=== PATIENT | female | born 1940 | race Caucasian/White ===

== ENCOUNTER → 2017-12-09 | Outpatient (CLI) | payer OTHER, SELFPAY ==
[~2017-12-09] MED LIST: ALBU2.5V5 INH; AMIT75 PO; AMOX250 PO; ASPI81CH PO; ASPI81EC; Amoxicillin500 MG PO; CLON.5 PO; DIPATR PO; ENOX40I SC; ESCI20 PO; FURO20 PO; HYDACE5; HYDACE5 PO; HYDR1TAB94 PO; Hydrocodone-Ap1 EA23 PO; Lotrel 10-20 M1 EACH PO; METF500 PO; METO25 PO; Micro-K10 MEQ PO; OXYACE5T PO; POTCHL10ER PO; PRED20 PO; PROM25 PO; TRAZ50 PO; XARELTO20 MG PO; [UNRECOGNIZED DRUG - REMARK]; [UNRECOGNIZED DRUG - REMARK]; [UNRECOGNIZED DRUG - REMARK]
== END | disposition home or self-care (01) ==
LOC: LAB SHORT 17:29 → LAB EV 17:29
DX: R39.15 Urgency of urination (principal)
CPT/HCPCS: 87086

== ENCOUNTER 2017-12-21 18:39 | Inpatient (IN) | payer OTHER, SELFPAY ==
[~2017-12-21] VITALS: Ht 162.6 cm; Wt 100.5 kg
[~2017-12-21 18:39] MED LIST changes: -ALBU2.5V5 INH; -AMOX250 PO; -ESCI20 PO; -FURO20 PO; -METO25 PO; -Micro-K10 MEQ PO; -POTCHL10ER PO; -PRED20 PO; -TRAZ50 PO; -XARELTO20 MG PO
[2017-12-21] MEDS ORDERED: ESCI20 PO (19:10)
[2017-12-21] MEDS ORDERED: HYDR1TAB94 PO (19:11)
[2017-12-21 19:19] LABS: BASOPHILS ABSOLUTE AUTO 0.02 K/mm3 (0.00-0.23); BASOPHILS PERCENT AUTO 0 % (0-2); EOSINOPHILS PERCENT AUTO 2 % (0-6); Hematocrit 40.3 % (33.0-51.0); Hemoglobin 13.3 g/dL (11.5-16.0); IMMATURE GRAN ABSOLUTE AUTO 0.01 K/mm3 (0.00-0.10); IMMATURE GRAN PERCENT AUTO 0 % (0-1); LYMPHOCYTES ABSOLUTE AUTO 1.17 K/mm3 (0.84-5.20); LYMPHOCYTES PERCENT AUTO 25 % (21-46); MONOCYTES ABSOLUTE AUTO 0.36 K/mm3 (0.16-1.47); MONOCYTES PERCENT AUTO 8 % (4-13); Mean Corpuscular HGB 32.5 pg (26.0-34.0); Mean Corpuscular Volume 99 fL (80-100); Mean Platelet Volume 9.7 fL (9.1-12.4); NEUTROPHILS ABSOLUTE AUTO 2.97 K/mm3 (1.96-9.15); NEUTROPHILS PERCENT AUTO 64 % (41-73); Platelet Count 252 K/mm3 (150-400); RDW Coefficient Variation 13.6 % (11.7-14.2); RDW Standard Deviation 49.5 fL (35.1-46.3); Red Blood Cell Count 4.09 M/mm3 (3.80-5.20); White Blood Cell Count 4.63 K/mm3 (4.00-11.30)
[2017-12-21 19:32] LABS: International Normalized Ratio 0.96
[2017-12-21 19:33] LABS: Alanine Aminotransfer (ALT/SGP 29 U/L (12-78); Albumin, Blood 3.3 g/dL (3.4-5.0); Albumin/Globulin Ratio 0.8 (0.8-1.8); Alk Phos 43 U/L (50-136); Anion Gap 9 mmol/L (6-16); Aspartate Aminotrans (AST/SGOT 31 U/L (12-37); Bilirubin, Total 0.4 mg/dL (0.1-1.0); Blood Urea Nitrogen 24 mg/dL (8-24); CO2, Blood 24 mmol/L (21-32); Calcium, Blood 8.5 mg/dL (8.5-10.1); Chloride, Blood 106 mmol/L (98-108); Globulin, Blood 4.1 g/dL (2.2-4.0); Glomerular Filtration Rate 57 (60-); Glucose, Blood 139 mg/dL (70-99); Magnesium, Blood 2.3 mg/dL (1.6-2.4); Potassium, Blood 3.8 mmol/L (3.5-5.5); Sodium, Blood 139 mmol/L (136-145); Total Protein, Blood 7.4 g/dL (6.4-8.2); Troponin I <0.015 ng/mL (0.000-0.040)
[2017-12-22 00:51] LABS: Source, Urine Clean Catch
[2017-12-22 00:52] LABS: Bilirubin, Urine Neg (Neg); Blood, Urine 3+ (Neg); Glucose Qualitative, Urine Neg (Neg); Ketones, Urine Neg (Neg); Leukocyte Esterase, Urine 1+ (Neg); Nitrite, Urine Neg (Neg); Protein, Urine Neg (Neg); Urobilinogen, Urine NORM (Normal)
[2017-12-22 01:01] LABS: Appearance, Urine Clear (Clear); Color, Urine Yellow (P-Yellow)
[2017-12-22 01:02] LABS: Bacteria Rare /hpf; Squamous Epithelial Cells Few /hpf (Few); White Blood Cells, Urine Rare /hpf (0-5)
[2017-12-22 01:21] LABS: Influenza A Negative (NEGATIVE); Influenza B Negative (NEGATIVE)
[2017-12-22 10:17] LABS: BASOPHILS ABSOLUTE AUTO 0.01 K/mm3 (0.00-0.23); BASOPHILS PERCENT AUTO 0 % (0-2); EOSINOPHILS PERCENT AUTO 0 % (0-6); Hematocrit 40.7 % (33.0-51.0); Hemoglobin 13.3 g/dL (11.5-16.0); Mean Corpuscular HGB 32.2 pg (26.0-34.0); Mean Corpuscular HGB Conc 32.7 g/dL (31.5-36.5); Mean Corpuscular Volume 99 fL (80-100); Mean Platelet Volume 9.6 fL (9.1-12.4); Platelet Count 248 K/mm3 (150-400); RDW Coefficient Variation 13.4 % (11.7-14.2); RDW Standard Deviation 49.2 fL (35.1-46.3); Red Blood Cell Count 4.13 M/mm3 (3.80-5.20); White Blood Cell Count 3.05 K/mm3 (4.00-11.30)
[2017-12-22 10:23] LABS: IMMATURE GRAN ABSOLUTE AUTO 0.01 K/mm3 (0.00-0.10); IMMATURE GRAN PERCENT AUTO 0 % (0-1); LYMPHOCYTES ABSOLUTE AUTO 0.59 K/mm3 (0.84-5.20); LYMPHOCYTES PERCENT AUTO 19 % (21-46); MONOCYTES ABSOLUTE AUTO 0.04 K/mm3 (0.16-1.47); MONOCYTES PERCENT AUTO 1 % (4-13); NEUTROPHILS PERCENT AUTO 79 % (41-73)
[2017-12-22 10:42] LABS: Alanine Aminotransfer (ALT/SGP 41 U/L (12-78); Albumin, Blood 3.1 g/dL (3.4-5.0); Albumin/Globulin Ratio 0.7 (0.8-1.8); Alk Phos 43 U/L (50-136); Anion Gap 7 mmol/L (6-16); Aspartate Aminotrans (AST/SGOT 48 U/L (12-37); Bilirubin, Total 0.5 mg/dL (0.1-1.0); Blood Urea Nitrogen 17 mg/dL (8-24); Bun/Creatinine Ratio 25.1 (12.0-20.0); CO2, Blood 24 mmol/L (21-32); Calcium, Blood 7.9 mg/dL (8.5-10.1); Chloride, Blood 108 mmol/L (98-108); Creatinine, Blood 0.68 mg/dL (0.40-1.00); Globulin, Blood 4.3 g/dL (2.2-4.0); Glomerular Filtration Rate >60 (60-); Glucose, Blood 220 mg/dL (70-99); Potassium, Blood 4.3 mmol/L (3.5-5.5); Sodium, Blood 139 mmol/L (136-145); Total Protein, Blood 7.4 g/dL (6.4-8.2)
[2017-12-23 05:21] LABS: BASOPHILS ABSOLUTE AUTO 0.01 K/mm3 (0.00-0.23); BASOPHILS PERCENT AUTO 0 % (0-2); EOSINOPHILS PERCENT AUTO 0 % (0-6); Hematocrit 38.6 % (33.0-51.0); Hemoglobin 12.4 g/dL (11.5-16.0); IMMATURE GRAN ABSOLUTE AUTO 0.03 K/mm3 (0.00-0.10); IMMATURE GRAN PERCENT AUTO 0 % (0-1); LYMPHOCYTES ABSOLUTE AUTO 0.88 K/mm3 (0.84-5.20); LYMPHOCYTES PERCENT AUTO 11 % (21-46); MONOCYTES PERCENT AUTO 4 % (4-13); Mean Corpuscular HGB 32.2 pg (26.0-34.0); Mean Corpuscular HGB Conc 32.1 g/dL (31.5-36.5); Mean Corpuscular Volume 100 fL (80-100); Mean Platelet Volume 9.9 fL (9.1-12.4); NEUTROPHILS PERCENT AUTO 84 % (41-73); Platelet Count 242 K/mm3 (150-400); RDW Coefficient Variation 13.4 % (11.7-14.2); Red Blood Cell Count 3.85 M/mm3 (3.80-5.20); White Blood Cell Count 7.72 K/mm3 (4.00-11.30)
[2017-12-23 06:09] LABS: Alanine Aminotransfer (ALT/SGP 54 U/L (12-78); Albumin/Globulin Ratio 0.7 (0.8-1.8); Alk Phos 37 U/L (50-136); Anion Gap 9 mmol/L (6-16); Aspartate Aminotrans (AST/SGOT 49 U/L (12-37); Bilirubin, Total 0.3 mg/dL (0.1-1.0); Blood Urea Nitrogen 21 mg/dL (8-24); Bun/Creatinine Ratio 31.2 (12.0-20.0); CO2, Blood 22 mmol/L (21-32); Calcium, Blood 8.2 mg/dL (8.5-10.1); Chloride, Blood 108 mmol/L (98-108); Creatinine, Blood 0.67 mg/dL (0.40-1.00); Globulin, Blood 4.4 g/dL (2.2-4.0); Glomerular Filtration Rate >60 (60-); Glucose, Blood 159 mg/dL (70-99); Potassium, Blood 4.3 mmol/L (3.5-5.5); Sodium, Blood 139 mmol/L (136-145); Total Protein, Blood 7.4 g/dL (6.4-8.2)
[2017-12-26 05:00] LABS: Anion Gap 7 mmol/L (6-16); Blood Urea Nitrogen 21 mg/dL (8-24); Bun/Creatinine Ratio 33.8 (12.0-20.0); CO2, Blood 29 mmol/L (21-32); Chloride, Blood 103 mmol/L (98-108); Creatinine, Blood 0.62 mg/dL (0.40-1.00); Glomerular Filtration Rate >60 (60-); Glucose, Blood 152 mg/dL (70-99); Potassium, Blood 3.8 mmol/L (3.5-5.5); Sodium, Blood 139 mmol/L (136-145)
[2017-12-27] MEDS ORDERED: ALBU2.5V5 INH (15:18)
[2017-12-27] MEDS ORDERED: METO25 PO (15:20)
[2017-12-27] MEDS ORDERED: XARELTO20 MG PO (15:22)
[2017-12-27] MEDS ORDERED: PRED20 PO (15:22)
[2018-02-12] MEDS ORDERED: HYDR1TAB94 PO (14:47)
== END 2017-12-27 17:56 | disposition home or self-care (01) | DRG 193 ==
LOC: ER 18:39 → PCU 20:34 → MEDS 12-23 16:59 → ENPENDDIS 12-27 14:30 → MEDS 12-27 17:56
PROVIDERS: Emergency Medicine; Internal Medicine; Internal Medicine Endocrinology, Diabetes & Metabolism
PROC: 5A09357 Assistance with Respiratory Ventilation, Less than 24 Consecutive Hours, Continuous Positive Airway Pressure (ICD-10-PCS; principal; 2017-12-22)
PROC: 3E0234Z Introduction of Serum, Toxoid and Vaccine into Muscle, Percutaneous Approach (ICD-10-PCS; 2017-12-22)
DX: J18.9 Pneumonia, unspecified organism (principal); J96.01 Acute respiratory failure with hypoxia; Z23 Encounter for immunization; I48.91 Unspecified atrial fibrillation; E66.9 Obesity, unspecified; Z68.35 Body mass index [BMI] 35.0-35.9, adult; E11.9 Type 2 diabetes mellitus without complications; I10 Essential (primary) hypertension
CPT/HCPCS: 36415; 71046; 71260; 80048; 80053; 81001; 82947; 83605; 83735; 83880; 84145; 84443; 84484; 85025; 85379; 85610; 85730; 87040; 87804; 93005; 93010; 93306; 94640; 94660; 94762; 96365; 96368; 96375; 97116; 97162; 97165; 97530; 97535; 99285; G8978; G8979; G8987; G8988; J0456; J0696; J1650; J1956; J2405; J2930; J3480; J7030; J7050; Q9967

== ENCOUNTER → 2017-12-21 | Outpatient (CLI) | payer OTHER, SELFPAY ==
[2017-12-21 18:07] LABS: BASOPHILS ABSOLUTE AUTO 0.03 K/mm3 (0.00-0.23); BASOPHILS PERCENT AUTO 1 % (0-2); EOSINOPHILS PERCENT AUTO 2 % (0-6); Hematocrit 41.4 % (33.0-51.0); Hemoglobin 13.9 g/dL (11.5-16.0); IMMATURE GRAN ABSOLUTE AUTO 0.02 K/mm3 (0.00-0.10); IMMATURE GRAN PERCENT AUTO 0 % (0-1); LYMPHOCYTES ABSOLUTE AUTO 1.28 K/mm3 (0.84-5.20); LYMPHOCYTES PERCENT AUTO 25 % (21-46); MONOCYTES ABSOLUTE AUTO 0.38 K/mm3 (0.16-1.47); MONOCYTES PERCENT AUTO 8 % (4-13); Mean Corpuscular HGB 32.7 pg (26.0-34.0); Mean Corpuscular HGB Conc 33.6 g/dL (31.5-36.5); Mean Corpuscular Volume 97 fL (80-100); Mean Platelet Volume 9.5 fL (9.1-12.4); NEUTROPHILS ABSOLUTE AUTO 3.24 K/mm3 (1.96-9.15); NEUTROPHILS PERCENT AUTO 64 % (41-73); Platelet Count 273 K/mm3 (150-400); RDW Coefficient Variation 13.8 % (11.7-14.2); RDW Standard Deviation 49.8 fL (35.1-46.3); Red Blood Cell Count 4.25 M/mm3 (3.80-5.20); White Blood Cell Count 5.05 K/mm3 (4.00-11.30)
[2017-12-21 18:22] LABS: Anion Gap 8 mmol/L (6-16); Blood Urea Nitrogen 23 mg/dL (8-24); Bun/Creatinine Ratio 19.7 (12.0-20.0); CO2, Blood 26 mmol/L (21-32); Calcium, Blood 8.7 mg/dL (8.5-10.1); Chloride, Blood 104 mmol/L (98-108); Creatinine, Blood 1.17 mg/dL (0.40-1.00); Glomerular Filtration Rate 45 (60-); Glucose, Blood 149 mg/dL (70-99); Potassium, Blood 3.9 mmol/L (3.5-5.5); Sodium, Blood 138 mmol/L (136-145)
[2017-12-21 18:23] LABS: Troponin I <0.017 ng/mL (0.000-0.040)
== END | disposition home or self-care (01) ==
LOC: LAB EV 18:04 → LAB SHORT 18:04
PROVIDERS: Family Medicine
DX: I48.91 Unspecified atrial fibrillation (principal); E11.9 Type 2 diabetes mellitus without complications
CPT/HCPCS: 80048; 83036; 84484; 85025

== ENCOUNTER 2018-01-19 01:24 | Inpatient (IN) | payer OTHER ==
[~2018-01-19] VITALS: Ht 165.1 cm; Wt 94.6 kg
[~2018-01-19 01:24] MED LIST changes: +ALBU2.5V5 INH; +ESCI20 PO; +METO25 PO; +PRED20 PO; +XARELTO20 MG PO
[2018-01-19 02:18] LABS: BASOPHILS ABSOLUTE AUTO 0.02 K/mm3 (0.00-0.23); BASOPHILS PERCENT AUTO 0 % (0-2); EOSINOPHILS PERCENT AUTO 5 % (0-6); Hematocrit 35.4 % (33.0-51.0); Hemoglobin 11.5 g/dL (11.5-16.0); IMMATURE GRAN ABSOLUTE AUTO 0.03 K/mm3 (0.00-0.10); IMMATURE GRAN PERCENT AUTO 1 % (0-1); LYMPHOCYTES ABSOLUTE AUTO 2.19 K/mm3 (0.84-5.20); LYMPHOCYTES PERCENT AUTO 36 % (21-46); MONOCYTES ABSOLUTE AUTO 0.39 K/mm3 (0.16-1.47); MONOCYTES PERCENT AUTO 7 % (4-13); Mean Corpuscular HGB Conc 32.5 g/dL (31.5-36.5); Mean Corpuscular Volume 101 fL (80-100); NEUTROPHILS ABSOLUTE AUTO 3.09 K/mm3 (1.96-9.15); NEUTROPHILS PERCENT AUTO 51 % (41-73); Platelet Count 216 K/mm3 (150-400); RDW Coefficient Variation 14.3 % (11.7-14.2); RDW Standard Deviation 53.2 fL (35.1-46.3); Red Blood Cell Count 3.49 M/mm3 (3.80-5.20); White Blood Cell Count 6.02 K/mm3 (4.00-11.30)
[2018-01-19 02:25] LABS: Alanine Aminotransfer (ALT/SGP 77 U/L (12-78); Albumin/Globulin Ratio 0.8 (0.8-1.8); Alk Phos 46 U/L (50-136); Anion Gap 6 mmol/L (6-16); Aspartate Aminotrans (AST/SGOT 47 U/L (12-37); Bilirubin, Total 0.3 mg/dL (0.1-1.0); Blood Urea Nitrogen 19 mg/dL (8-24); Bun/Creatinine Ratio 23.1 (12.0-20.0); CO2, Blood 26 mmol/L (21-32); Calcium, Blood 7.9 mg/dL (8.5-10.1); Chloride, Blood 112 mmol/L (98-108); Creatinine, Blood 0.82 mg/dL (0.40-1.00); Globulin, Blood 3.8 g/dL (2.2-4.0); Glomerular Filtration Rate >60 (60-); Glucose, Blood 110 mg/dL (70-99); Potassium, Blood 4.3 mmol/L (3.5-5.5); Sodium, Blood 144 mmol/L (136-145); Total Protein, Blood 6.8 g/dL (6.4-8.2); Troponin I <0.015 ng/mL (0.000-0.040)
[2018-01-19 02:36] LABS: PCO2 Arterial 32.8 mmHg (35-45); PO2 Arterial 60.9 mmHg (80-100); pH Blood Arterial 7.46 (7.35-7.45)
[2018-01-19 14:03] LABS: BASOPHILS ABSOLUTE AUTO 0.02 K/mm3 (0.00-0.23); BASOPHILS PERCENT AUTO 0 % (0-2); EOSINOPHILS ABSOLUTE AUTO 0.21 K/mm3 (0.00-0.68); EOSINOPHILS PERCENT AUTO 4 % (0-6); Hemoglobin 11.7 g/dL (11.5-16.0); IMMATURE GRAN ABSOLUTE AUTO 0.02 K/mm3 (0.00-0.10); IMMATURE GRAN PERCENT AUTO 0 % (0-1); LYMPHOCYTES ABSOLUTE AUTO 1.54 K/mm3 (0.84-5.20); LYMPHOCYTES PERCENT AUTO 30 % (21-46); MONOCYTES PERCENT AUTO 8 % (4-13); Mean Corpuscular HGB 33.4 pg (26.0-34.0); Mean Corpuscular HGB Conc 33.4 g/dL (31.5-36.5); Mean Corpuscular Volume 100 fL (80-100); Mean Platelet Volume 9.7 fL (9.1-12.4); NEUTROPHILS PERCENT AUTO 58 % (41-73); Platelet Count 233 K/mm3 (150-400); RDW Coefficient Variation 14.2 % (11.7-14.2); RDW Standard Deviation 51.9 fL (35.1-46.3); White Blood Cell Count 5.19 K/mm3 (4.00-11.30)
[2018-01-19 14:55] LABS: Alanine Aminotransfer (ALT/SGP 68 U/L (12-78); Albumin, Blood 3.1 g/dL (3.4-5.0); Albumin/Globulin Ratio 0.8 (0.8-1.8); Alk Phos 48 U/L (50-136); Anion Gap 6 mmol/L (6-16); Aspartate Aminotrans (AST/SGOT 39 U/L (12-37); Bilirubin, Total 0.7 mg/dL (0.1-1.0); Blood Urea Nitrogen 14 mg/dL (8-24); Bun/Creatinine Ratio 14.8 (12.0-20.0); CO2, Blood 27 mmol/L (21-32); Calcium, Blood 8.2 mg/dL (8.5-10.1); Chloride, Blood 108 mmol/L (98-108); Creatinine, Blood 0.95 mg/dL (0.40-1.00); Globulin, Blood 3.9 g/dL (2.2-4.0); Glomerular Filtration Rate >60 (60-); Glucose, Blood 124 mg/dL (70-99); Potassium, Blood 3.6 mmol/L (3.5-5.5); Sodium, Blood 141 mmol/L (136-145)
[2018-01-20] MEDS ORDERED: FURO20 PO (15:26)
[2018-01-20] MEDS ORDERED: Micro-K10 MEQ PO (15:27)
== END 2018-01-20 16:10 | disposition home or self-care (01) | DRG 291 ==
LOC: ER 01:24 → MEDS 01:25 → SURS 03:25
PROVIDERS: Emergency Medicine; Internal Medicine
DX: I11.0 Hypertensive heart disease with heart failure (principal); J96.01 Acute respiratory failure with hypoxia; I50.31 Acute diastolic (congestive) heart failure; E11.9 Type 2 diabetes mellitus without complications; G47.33 Obstructive sleep apnea (adult) (pediatric); E66.9 Obesity, unspecified; I48.2 Chronic atrial fibrillation; Z68.36 Body mass index [BMI] 36.0-36.9, adult
CPT/HCPCS: 36415; 36600; 71046; 71260; 80053; 82803; 83880; 84484; 85025; 93005; 93010; 94640; 94660; 94762; 99285; J1940; Q9967

== ENCOUNTER → 2018-02-03 | Outpatient (CLI) | payer OTHER ==
[~2018-02-03] MED LIST changes: +FURO20 PO; +Micro-K10 MEQ PO
[2018-02-03 15:23] LABS: BASOPHILS ABSOLUTE AUTO 0.05 K/mm3 (0.00-0.23); BASOPHILS PERCENT AUTO 1 % (0-2); EOSINOPHILS ABSOLUTE AUTO 0.13 K/mm3 (0.00-0.68); EOSINOPHILS PERCENT AUTO 2 % (0-6); Hematocrit 33.4 % (33.0-51.0); Hemoglobin 10.8 g/dL (11.5-16.0); IMMATURE GRAN ABSOLUTE AUTO 0.04 K/mm3 (0.00-0.10); IMMATURE GRAN PERCENT AUTO 1 % (0-1); LYMPHOCYTES ABSOLUTE AUTO 1.82 K/mm3 (0.84-5.20); LYMPHOCYTES PERCENT AUTO 29 % (21-46); MONOCYTES ABSOLUTE AUTO 0.55 K/mm3 (0.16-1.47); MONOCYTES PERCENT AUTO 9 % (4-13); Mean Corpuscular HGB 32.9 pg (26.0-34.0); Mean Corpuscular HGB Conc 32.3 g/dL (31.5-36.5); Mean Corpuscular Volume 102 fL (80-100); Mean Platelet Volume 9.5 fL (9.1-12.4); NEUTROPHILS ABSOLUTE AUTO 3.75 K/mm3 (1.96-9.15); NEUTROPHILS PERCENT AUTO 59 % (41-73); Platelet Count 357 K/mm3 (150-400); RDW Coefficient Variation 14.5 % (11.7-14.2); Red Blood Cell Count 3.28 M/mm3 (3.80-5.20); White Blood Cell Count 6.34 K/mm3 (4.00-11.30)
[2018-02-03 15:34] LABS: Alanine Aminotransfer (ALT/SGP 36 U/L (12-78); Albumin, Blood 3.1 g/dL (3.4-5.0); Albumin/Globulin Ratio 0.8 (0.8-1.8); Alk Phos 46 U/L (40-126); Anion Gap 7 mmol/L (6-16); Aspartate Aminotrans (AST/SGOT 25 U/L (12-37); Bilirubin, Total 0.3 mg/dL (0.1-1.0); Blood Urea Nitrogen 17 mg/dL (8-24); Bun/Creatinine Ratio 19.3 (12.0-20.0); CO2, Blood 27 mmol/L (21-32); Calcium, Blood 8.5 mg/dL (8.5-10.1); Chloride, Blood 108 mmol/L (98-108); Creatinine, Blood 0.88 mg/dL (0.40-1.00); Globulin, Blood 3.9 g/dL (2.2-4.0); Glomerular Filtration Rate >60 (60-); Glucose, Blood 93 mg/dL (70-99); Potassium, Blood 4.3 mmol/L (3.5-5.5); Sodium, Blood 142 mmol/L (136-145)
== END ==
LOC: LAB SHORT 15:20 → LAB EV 15:20
PROVIDERS: Physician Assistant
DX: R05 Cough (principal)
CPT/HCPCS: 80053; 83880; 85025

== ENCOUNTER 2018-02-15 08:02 | Day surgery (SDC) | payer OTHER ==
[~2018-02-15] VITALS: Ht 165.1 cm; Wt 95.5 kg
== END 2018-02-15 09:00 | disposition home or self-care (01) ==
LOC: MHTC 08:02
DX: I48.91 Unspecified atrial fibrillation (principal); I11.0 Hypertensive heart disease with heart failure; I50.33 Acute on chronic diastolic (congestive) heart failure
CPT/HCPCS: 82947; J2060; J2270; J7030

== ENCOUNTER 2018-04-12 06:58 | Day surgery (SDC) | payer OTHER ==
[~2018-04-12] VITALS: Ht 162.6 cm; Wt 97.3 kg
[2018-04-12] MEDS ORDERED: AMOX250 PO (08:01)
[2018-04-12] MEDS ORDERED: POTCHL10ER PO (09:09)
[2018-04-12] MEDS ORDERED: FURO20 PO (09:09)
== END 2018-04-12 23:32 | disposition home or self-care (01) ==
LOC: MHTC 06:58
DX: I48.1 Persistent atrial fibrillation (principal); Z79.01 Long term (current) use of anticoagulants; I11.0 Hypertensive heart disease with heart failure; I50.33 Acute on chronic diastolic (congestive) heart failure; Z91.14 Patient's other noncompliance with medication regimen; E11.9 Type 2 diabetes mellitus without complications; Z79.84 Long term (current) use of oral hypoglycemic drugs; D64.9 Anemia, unspecified; G47.33 Obstructive sleep apnea (adult) (pediatric); F41.8 Other specified anxiety disorders; E66.9 Obesity, unspecified; Z68.36 Body mass index [BMI] 36.0-36.9, adult
CPT/HCPCS: 92960; 93005; 93010; J0282; J7120

== ENCOUNTER → 2018-04-23 | Outpatient (CLI) | payer OTHER ==
[~2018-04-23] MED LIST changes: +AMOX250 PO; +POTCHL10ER PO
== END | disposition home or self-care (01) ==
LOC: LAB EV 18:54 → LAB SHORT 18:54
DX: R30.0 Dysuria (principal)
CPT/HCPCS: 87086

== ENCOUNTER 2018-05-13 20:11 | Emergency (ER) | payer OTHER, SELFPAY ==
[~2018-05-13] VITALS: Ht 154.9 cm; Wt 98.0 kg
[2018-05-13] MEDS ORDERED: TRAZ50 PO (21:48)
== END 2018-05-13 22:57 | disposition home or self-care (01) ==
LOC: ER 20:11
DX: F32.9 Major depressive disorder, single episode, unspecified (principal); F41.1 Generalized anxiety disorder; Z88.1 Allergy status to other antibiotic agents; Z79.899 Other long term (current) drug therapy; E11.9 Type 2 diabetes mellitus without complications; Z79.84 Long term (current) use of oral hypoglycemic drugs; I48.91 Unspecified atrial fibrillation; I10 Essential (primary) hypertension; Z87.01 Personal history of pneumonia (recurrent)
CPT/HCPCS: 99283

== ENCOUNTER → 2018-11-03 | Outpatient (CLI) | payer MEDICARE, OTHER ==
[~2018-11-03] MED LIST changes: +TRAZ50 PO
[2018-11-03 10:57] LABS: BASOPHILS ABSOLUTE AUTO 0.04 K/mm3 (0.00-0.23); BASOPHILS PERCENT AUTO 1 % (0-2); EOSINOPHILS ABSOLUTE AUTO 0.22 K/mm3 (0.00-0.68); EOSINOPHILS PERCENT AUTO 4 % (0-6); Hematocrit 37.5 % (33.0-51.0); Hemoglobin 12.5 g/dL (11.5-16.0); IMMATURE GRAN ABSOLUTE AUTO 0.01 K/mm3 (0.00-0.10); IMMATURE GRAN PERCENT AUTO 0 % (0-1); LYMPHOCYTES ABSOLUTE AUTO 1.81 K/mm3 (0.84-5.20); LYMPHOCYTES PERCENT AUTO 31 % (21-46); MONOCYTES ABSOLUTE AUTO 0.55 K/mm3 (0.16-1.47); MONOCYTES PERCENT AUTO 9 % (4-13); Mean Corpuscular HGB 32.4 pg (26.0-34.0); Mean Corpuscular HGB Conc 33.3 g/dL (31.5-36.5); Mean Corpuscular Volume 97 fL (80-100); Mean Platelet Volume 9.6 fL (9.1-12.4); NEUTROPHILS ABSOLUTE AUTO 3.21 K/mm3 (1.96-9.15); NEUTROPHILS PERCENT AUTO 55 % (41-73); Platelet Count 322 K/mm3 (150-400); RDW Coefficient Variation 13.1 % (11.7-14.2); RDW Standard Deviation 46.5 fL (35.1-46.3); Red Blood Cell Count 3.86 M/mm3 (3.80-5.20); White Blood Cell Count 5.84 K/mm3 (4.00-11.30)
[2018-11-03 11:20] LABS: Alanine Aminotransfer (ALT/SGP 19 U/L (12-78); Albumin, Blood 3.1 g/dL (3.4-5.0); Albumin/Globulin Ratio 0.7 (0.8-1.8); Alk Phos 42 U/L (40-126); Anion Gap 11 mmol/L (6-16); Aspartate Aminotrans (AST/SGOT 21 U/L (12-37); Bilirubin, Total 0.4 mg/dL (0.1-1.0); Blood Urea Nitrogen 10 mg/dL (8-24); Bun/Creatinine Ratio 11.2 (12.0-20.0); CO2, Blood 27 mmol/L (21-32); CPK Creatine Kinase 115 U/L (26-192); Calcium, Blood 8.7 mg/dL (8.5-10.1); Chloride, Blood 106 mmol/L (98-108); Creatinine, Blood 0.89 mg/dL (0.40-1.00); Globulin, Blood 4.3 g/dL (2.2-4.0); Glomerular Filtration Rate >60 (60-); Glucose, Blood 94 mg/dL (70-99); Potassium, Blood 3.2 mmol/L (3.5-5.5); Sodium, Blood 144 mmol/L (136-145); Total Protein, Blood 7.4 g/dL (6.4-8.2)
[2018-11-03 11:21] LABS: Troponin I <0.015 ng/mL (0.000-0.040)
== END | disposition home or self-care (01) ==
LOC: LAB SHORT 10:51 → LAB EV 10:51
PROVIDERS: Physician Assistant
DX: R07.81 Pleurodynia (principal)
CPT/HCPCS: 80053; 82550; 83880; 84484; 85025; 85379

== ENCOUNTER → 2019-02-02 | Outpatient (CLI) | payer MEDICARE, OTHER ==
[~2019-02-02] MED LIST changes: +DULO60 PO; +Lopressor 25 mg25 MG PO; +METF500C PO; +Zanaflex2 M1 PO
[2019-02-02 11:33] LABS: BASOPHILS ABSOLUTE AUTO 0.04 K/mm3 (0.00-0.23); BASOPHILS PERCENT AUTO 1 % (0-2); EOSINOPHILS ABSOLUTE AUTO 0.19 K/mm3 (0.00-0.68); EOSINOPHILS PERCENT AUTO 3 % (0-6); Hematocrit 39.7 % (33.0-51.0); Hemoglobin 13.1 g/dL (11.5-16.0); IMMATURE GRAN ABSOLUTE AUTO 0.02 K/mm3 (0.00-0.10); IMMATURE GRAN PERCENT AUTO 0 % (0-1); LYMPHOCYTES ABSOLUTE AUTO 1.42 K/mm3 (0.84-5.20); LYMPHOCYTES PERCENT AUTO 22 % (21-46); MONOCYTES ABSOLUTE AUTO 0.45 K/mm3 (0.16-1.47); MONOCYTES PERCENT AUTO 7 % (4-13); Mean Corpuscular HGB 32.1 pg (26.0-34.0); Mean Corpuscular Volume 97 fL (80-100); Mean Platelet Volume 9.5 fL (9.1-12.4); NEUTROPHILS ABSOLUTE AUTO 4.33 K/mm3 (1.96-9.15); NEUTROPHILS PERCENT AUTO 67 % (41-73); Platelet Count 316 K/mm3 (150-400); RDW Coefficient Variation 13.7 % (11.7-14.2); RDW Standard Deviation 49.1 fL (35.1-46.3); Red Blood Cell Count 4.08 M/mm3 (3.80-5.20); White Blood Cell Count 6.45 K/mm3 (4.00-11.30)
[2019-02-02 11:42] LABS: Alanine Aminotransfer (ALT/SGP 25 U/L (12-78); Albumin, Blood 3.6 g/dL (3.4-5.0); Albumin/Globulin Ratio 0.8 (0.8-1.8); Alk Phos 47 U/L (40-126); Anion Gap 7 mmol/L (6-16); Aspartate Aminotrans (AST/SGOT 22 U/L (12-37); Bilirubin, Total 0.4 mg/dL (0.1-1.0); Blood Urea Nitrogen 18 mg/dL (8-24); Bun/Creatinine Ratio 20.2 (12.0-20.0); CO2, Blood 31 mmol/L (21-32); Calcium, Blood 8.7 mg/dL (8.5-10.1); Chloride, Blood 103 mmol/L (98-108); Creatinine, Blood 0.89 mg/dL (0.40-1.00); Globulin, Blood 4.3 g/dL (2.2-4.0); Glomerular Filtration Rate >60 (60-); Glucose, Blood 101 mg/dL (70-99); Potassium, Blood 3.8 mmol/L (3.5-5.5); Sodium, Blood 141 mmol/L (136-145); Total Protein, Blood 7.9 g/dL (6.4-8.2)
== END | disposition home or self-care (01) ==
LOC: LAB EV 11:27 → LAB SHORT 11:27
PROVIDERS: Family Medicine
DX: R10.9 Unspecified abdominal pain (principal)
CPT/HCPCS: 80053; 85025

== ENCOUNTER 2019-03-02 08:04 | Day surgery (SDC) | payer MEDICARE, OTHER ==
[~2019-03-02] VITALS: Ht 165.1 cm; Wt 86.6 kg
--- NOTE | 2019-03-02 09:47 | NUR ---
03/02/19 0947 Jessica Gaytan AFTER SECOND DOSE OF PROPOFOL, PT'S OXYGEN DESATURATED TO 82% ON 5L NC. DR FRIAS CALLED IN AFTER JAW THRUST AND BAG MASK WERE APPLIED TO PT. DR FRIAS ARRIVED AT 09, 2ND DOSE OF MEDICATION WAS GIVEN AT 09.
== END 2019-03-02 10:24 | disposition home or self-care (01) ==
LOC: ORSCSDS 08:04
PROVIDERS: Internal Medicine Gastroenterology
PROC: 0DBK8ZX Excision of Ascending Colon, Via Natural or Artificial Opening Endoscopic, Diagnostic (ICD-10-PCS; principal; 2019-03-02 09:15)
PROC: 0DBL8ZX Excision of Transverse Colon, Via Natural or Artificial Opening Endoscopic, Diagnostic (ICD-10-PCS; principal; 2019-03-02 09:15)
DX: R19.7 Diarrhea, unspecified (principal); R10.31 Right lower quadrant pain; D12.3 Benign neoplasm of transverse colon; D12.2 Benign neoplasm of ascending colon; E11.9 Type 2 diabetes mellitus without complications; I10 Essential (primary) hypertension; I48.91 Unspecified atrial fibrillation; Z79.01 Long term (current) use of anticoagulants; F41.9 Anxiety disorder, unspecified; G47.33 Obstructive sleep apnea (adult) (pediatric); Z79.899 Other long term (current) drug therapy
CPT/HCPCS: 82947; 88305; J2250; J2704; J7120

== ENCOUNTER → 2019-03-16 | Outpatient (CLI) | payer MEDICARE, OTHER ==
[~2019-03-16] MED LIST changes: +Hydrochlorothia25 MG PO; +LOSA25 PO; +METCAR500 PO; +MOTION RELIEF25 MG PO; +POTCHL20ER PO
== END ==
LOC: LAB SHORT 12:31 → LAB 12:31
DX: N95.0 Postmenopausal bleeding (principal)
CPT/HCPCS: 88305

== ENCOUNTER 2019-04-21 12:45 | Day surgery (SDC) | payer MEDICARE, OTHER ==
[~2019-04-21] VITALS: Ht 160 cm; Wt 88.2 kg
--- NOTE | 2019-04-21 15:20 | NUR ---
04/21/19 1520 Mia Thomas PT O2 SAT OCC DROPS DOWN TO MID 80S. O2 JUMPS RIGHT BACK UP INTO HIGH 90S WHEN PT IS REMINDED TO TAKE DEEP BREATHS.
== END 2019-04-21 15:46 | disposition home or self-care (01) ==
LOC: ORSCSDS 12:45
PROVIDERS: Obstetrics & Gynecology
PROC: 0UDB8ZX Extraction of Endometrium, Via Natural or Artificial Opening Endoscopic, Diagnostic (ICD-10-PCS; principal; 2019-04-21 14:00)
DX: N95.0 Postmenopausal bleeding (principal); R93.89 Abnormal findings on diagnostic imaging of other specified body structures; N84.0 Polyp of corpus uteri; I10 Essential (primary) hypertension; E11.9 Type 2 diabetes mellitus without complications; G47.33 Obstructive sleep apnea (adult) (pediatric); Z79.899 Other long term (current) drug therapy; I48.91 Unspecified atrial fibrillation; Z79.01 Long term (current) use of anticoagulants
CPT/HCPCS: 82947; 88305; J1100; J1885; J2405; J2704; J3010

== ENCOUNTER → 2019-05-25 | Outpatient (CLI) | payer MEDICARE, OTHER | END | disposition home or self-care (01) | LOC: LAB EV 10:36 → LAB SHORT 10:36 | DX: Z51.81 Encounter for therapeutic drug level monitoring (principal); Z79.899 Other long term (current) drug therapy | CPT/HCPCS: G0480 ==

== ENCOUNTER → 2019-08-23 | Outpatient (CLI) | payer MEDICARE, OTHER ==
[2019-08-23 16:10] LABS: BASOPHILS ABSOLUTE AUTO 0.03 K/mm3 (0.00-0.23); BASOPHILS PERCENT AUTO 0 % (0-2); EOSINOPHILS ABSOLUTE AUTO 0.06 K/mm3 (0.00-0.68); EOSINOPHILS PERCENT AUTO 1 % (0-6); Hematocrit 41.4 % (33.0-51.0); Hemoglobin 13.6 g/dL (11.5-16.0); IMMATURE GRAN ABSOLUTE AUTO 0.02 K/mm3 (0.00-0.10); IMMATURE GRAN PERCENT AUTO 0 % (0-1); LYMPHOCYTES ABSOLUTE AUTO 1.55 K/mm3 (0.84-5.20); LYMPHOCYTES PERCENT AUTO 21 % (21-46); MONOCYTES ABSOLUTE AUTO 0.51 K/mm3 (0.16-1.47); MONOCYTES PERCENT AUTO 7 % (4-13); Mean Corpuscular HGB 33.3 pg (26.0-34.0); Mean Corpuscular HGB Conc 32.9 g/dL (31.5-36.5); Mean Corpuscular Volume 101 fL (80-100); Mean Platelet Volume 9.4 fL (9.1-12.4); NEUTROPHILS ABSOLUTE AUTO 5.24 K/mm3 (1.96-9.15); NEUTROPHILS PERCENT AUTO 71 % (41-73); Platelet Count 310 K/mm3 (150-400); RDW Coefficient Variation 13.1 % (11.7-14.2); RDW Standard Deviation 48.9 fL (35.1-46.3); Red Blood Cell Count 4.09 M/mm3 (3.80-5.20); White Blood Cell Count 7.41 K/mm3 (4.00-11.30)
[2019-08-23 16:21] LABS: Alanine Aminotransfer (ALT/SGP 23 U/L (12-78); Albumin, Blood 3.2 g/dL (3.4-5.0); Albumin/Globulin Ratio 0.7 (0.8-1.8); Alk Phos 47 U/L (40-126); Anion Gap 8 mmol/L (6-16); Aspartate Aminotrans (AST/SGOT 19 U/L (12-37); Bilirubin, Total 0.3 mg/dL (0.1-1.0); Blood Urea Nitrogen 21 mg/dL (8-24); Bun/Creatinine Ratio 17.6 (12.0-20.0); CO2, Blood 32 mmol/L (21-32); Calcium, Blood 9.2 mg/dL (8.5-10.1); Chloride, Blood 106 mmol/L (98-108); Creatinine, Blood 1.19 mg/dL (0.40-1.00); Globulin, Blood 4.4 g/dL (2.2-4.0); Glomerular Filtration Rate 44 (60-); Glucose, Blood 97 mg/dL (70-99); Potassium, Blood 3.8 mmol/L (3.5-5.5); Sodium, Blood 146 mmol/L (136-145); Total Protein, Blood 7.6 g/dL (6.4-8.2)
[2019-08-23 16:22] LABS: Troponin I <0.017 ng/mL (0.000-0.040)
== END ==
LOC: LAB EV 16:03 → LAB SHORT 16:03
PROVIDERS: Emergency Medicine
DX: M62.81 Muscle weakness (generalized) (principal)
CPT/HCPCS: 80053; 83880; 84484; 85025

== ENCOUNTER → 2019-08-26 | Outpatient (CLI) | payer MEDICARE, OTHER | END | disposition home or self-care (01) | LOC: LAB 12:15 → LAB SHORT 12:15 | DX: L02.91 Cutaneous abscess, unspecified (principal) | CPT/HCPCS: 87070; 87077; 87186; 87205 ==

== ENCOUNTER → 2019-09-02 | Outpatient (CLI) | payer MEDICARE, OTHER ==
[2019-09-02 13:42] LABS: BASOPHILS ABSOLUTE AUTO 0.04 K/mm3 (0.00-0.23); BASOPHILS PERCENT AUTO 1 % (0-2); EOSINOPHILS ABSOLUTE AUTO 0.13 K/mm3 (0.00-0.68); EOSINOPHILS PERCENT AUTO 2 % (0-6); Hematocrit 38.3 % (33.0-51.0); Hemoglobin 12.5 g/dL (11.5-16.0); IMMATURE GRAN ABSOLUTE AUTO 0.05 K/mm3 (0.00-0.10); IMMATURE GRAN PERCENT AUTO 1 % (0-1); LYMPHOCYTES ABSOLUTE AUTO 1.59 K/mm3 (0.84-5.20); LYMPHOCYTES PERCENT AUTO 24 % (21-46); MONOCYTES ABSOLUTE AUTO 0.57 K/mm3 (0.16-1.47); MONOCYTES PERCENT AUTO 9 % (4-13); Mean Corpuscular HGB 33.4 pg (26.0-34.0); Mean Corpuscular HGB Conc 32.6 g/dL (31.5-36.5); Mean Corpuscular Volume 102 fL (80-100); Mean Platelet Volume 9.1 fL (9.1-12.4); NEUTROPHILS ABSOLUTE AUTO 4.32 K/mm3 (1.96-9.15); NEUTROPHILS PERCENT AUTO 65 % (41-73); Platelet Count 305 K/mm3 (150-400); RDW Coefficient Variation 13.5 % (11.7-14.2); RDW Standard Deviation 51.2 fL (35.1-46.3); Red Blood Cell Count 3.74 M/mm3 (3.80-5.20)
[2019-09-02 13:51] LABS: Albumin, Blood 3.1 g/dL (3.4-5.0); Albumin/Globulin Ratio 0.8 (0.8-1.8); Bilirubin, Total 0.2 mg/dL (0.1-1.0); Bun/Creatinine Ratio 22.1 (12.0-20.0); Calcium, Blood 8.7 mg/dL (8.5-10.1); Creatinine, Blood 1.04 mg/dL (0.40-1.00); Globulin, Blood 4.1 g/dL (2.2-4.0); Potassium, Blood 4.8 mmol/L (3.5-5.5); Total Protein, Blood 7.2 g/dL (6.4-8.2)
== END ==
LOC: LAB EV 13:34 → LAB SHORT 13:34
PROVIDERS: Nurse Practitioner
DX: R41.0 Disorientation, unspecified (principal); Z79.899 Other long term (current) drug therapy
CPT/HCPCS: 80053; 82607; 85025

== ENCOUNTER 2019-10-27 11:54 | Emergency (ER) | payer MEDICARE, OTHER ==
[~2019-10-27] VITALS: Ht 162.6 cm; Wt 95.2 kg
[2019-10-27 12:26] LABS: BASOPHILS ABSOLUTE AUTO 0.04 K/mm3 (0.00-0.23); BASOPHILS PERCENT AUTO 1 % (0-2); EOSINOPHILS ABSOLUTE AUTO 0.19 K/mm3 (0.00-0.68); EOSINOPHILS PERCENT AUTO 3 % (0-6); Hematocrit 44.4 % (33.0-51.0); Hemoglobin 14.2 g/dL (11.5-16.0); IMMATURE GRAN ABSOLUTE AUTO 0.02 K/mm3 (0.00-0.10); IMMATURE GRAN PERCENT AUTO 0 % (0-1); LYMPHOCYTES ABSOLUTE AUTO 1.79 K/mm3 (0.84-5.20); LYMPHOCYTES PERCENT AUTO 26 % (21-46); MONOCYTES PERCENT AUTO 6 % (4-13); Mean Corpuscular Volume 103 fL (80-100); Mean Platelet Volume 9.3 fL (9.1-12.4); NEUTROPHILS ABSOLUTE AUTO 4.54 K/mm3 (1.96-9.15); NEUTROPHILS PERCENT AUTO 65 % (41-73); Platelet Count 328 K/mm3 (150-400); RDW Coefficient Variation 13.2 % (11.7-14.2); RDW Standard Deviation 50.7 fL (35.1-46.3); White Blood Cell Count 6.98 K/mm3 (4.00-11.30)
[2019-10-27 12:39] LABS: Alanine Aminotransfer (ALT/SGP 24 U/L (12-78); Albumin, Blood 3.1 g/dL (3.4-5.0); Albumin/Globulin Ratio 0.7 (0.8-1.8); Alk Phos 56 U/L (50-136); Anion Gap 5 mmol/L (6-16); Aspartate Aminotrans (AST/SGOT 14 U/L (12-37); Bilirubin, Total 0.4 mg/dL (0.1-1.0); Blood Urea Nitrogen 14 mg/dL (8-24); Bun/Creatinine Ratio 16.2 (12.0-20.0); CO2, Blood 29 mmol/L (21-32); Calcium, Blood 8.8 mg/dL (8.5-10.1); Chloride, Blood 108 mmol/L (98-108); Creatinine, Blood 0.86 mg/dL (0.40-1.00); Globulin, Blood 4.4 g/dL (2.2-4.0); Glomerular Filtration Rate >60 (60-); Glucose, Blood 186 mg/dL (70-99); Potassium, Blood 3.8 mmol/L (3.5-5.5); Sodium, Blood 142 mmol/L (136-145); Total Protein, Blood 7.5 g/dL (6.4-8.2); Troponin I <0.015 ng/mL (0.000-0.040)
== END 2019-10-27 13:46 | disposition home or self-care (01) ==
LOC: ER 11:54
PROVIDERS: Emergency Medicine
DX: R06.00 Dyspnea, unspecified (principal); F32.9 Major depressive disorder, single episode, unspecified; F41.9 Anxiety disorder, unspecified; I10 Essential (primary) hypertension; E11.9 Type 2 diabetes mellitus without complications; Z79.899 Other long term (current) drug therapy
CPT/HCPCS: 36415; 71046; 80053; 83880; 84484; 85025; 93005; 93010; 99284-25

== ENCOUNTER 2019-11-07 10:32 | Day surgery (SDC) | payer MEDICARE, OTHER ==
--- NOTE | 2019-11-07 12:43 | NUR ---
PT TO STEP. DENIES PAIN. BAND AID TO BACK D/I.
--- NOTE | 2019-11-07 12:46 | NUR ---
11/07/19 1246 Radha Mcclellan PATIENT INTO ENDO 2, ONTO RIGHT LATERAL AND POSITIONED WITH PILLOWS FOR COMFORT. PATIENT TOLERATED PROCEDURE WELL.
--- NOTE | 2019-11-07 12:56 | NUR ---
WRITTEN AND VERBAL D/C INSTUCTIONS GIVEN TO PT WITH STATED UNDERSTANDING. PT DENIES NUMBNESS OR TINGLING TO LEGS. FOOT STRENTH EQUAL.
== END 2019-11-07 22:46 | disposition home or self-care (01) ==
LOC: ORSCMMR 10:32 → ORD 11:45 → ORSCMMR 22:46
PROVIDERS: Orthopaedic Surgery
PROC: 3E0R33Z Introduction of Anti-inflammatory into Spinal Canal, Percutaneous Approach (ICD-10-PCS; principal; 2019-11-07 11:45)
PROC: B01B1ZZ Fluoroscopy of Spinal Cord using Low Osmolar Contrast (ICD-10-PCS; principal; 2019-11-07 11:45)
DX: M48.062 Spinal stenosis, lumbar region with neurogenic claudication (principal); M47.26 Other spondylosis with radiculopathy, lumbar region; E11.9 Type 2 diabetes mellitus without complications; I10 Essential (primary) hypertension; F41.8 Other specified anxiety disorders; Z79.84 Long term (current) use of oral hypoglycemic drugs; Z79.899 Other long term (current) drug therapy
CPT/HCPCS: J1040

== ENCOUNTER 2020-02-01 19:40 | Inpatient (IN) | payer MEDICARE, OTHER ==
[~2020-02-01] VITALS: Ht 165.1 cm; Wt 94.7 kg
[~2020-02-01 19:40] MED LIST changes: -BUPROPION XL150 M1 PO
[2020-02-01 20:08] LABS: BASOPHILS ABSOLUTE AUTO 0.03 K/mm3 (0.00-0.23); BASOPHILS PERCENT AUTO 0 % (0-2); EOSINOPHILS ABSOLUTE AUTO 0.04 K/mm3 (0.00-0.68); EOSINOPHILS PERCENT AUTO 0 % (0-6); Hemoglobin 13.8 g/dL (11.5-16.0); IMMATURE GRAN ABSOLUTE AUTO 0.05 K/mm3 (0.00-0.10); IMMATURE GRAN PERCENT AUTO 1 % (0-1); LYMPHOCYTES ABSOLUTE AUTO 1.49 K/mm3 (0.84-5.20); LYMPHOCYTES PERCENT AUTO 16 % (21-46); MONOCYTES ABSOLUTE AUTO 0.77 K/mm3 (0.16-1.47); MONOCYTES PERCENT AUTO 8 % (4-13); Mean Corpuscular HGB 32.8 pg (26.0-34.0); Mean Corpuscular HGB Conc 32.9 g/dL (31.5-36.5); Mean Corpuscular Volume 100 fL (80-100); Mean Platelet Volume 9.6 fL (9.1-12.4); NEUTROPHILS ABSOLUTE AUTO 7.17 K/mm3 (1.96-9.15); NEUTROPHILS PERCENT AUTO 75 % (41-73); Platelet Count 286 K/mm3 (150-400); RDW Coefficient Variation 12.9 % (11.7-14.2); RDW Standard Deviation 47.6 fL (35.1-46.3); Red Blood Cell Count 4.21 M/mm3 (3.80-5.20); White Blood Cell Count 9.55 K/mm3 (4.00-11.30)
[2020-02-01 20:42] LABS: Alanine Aminotransfer (ALT/SGP 14 U/L (12-78); Albumin, Blood 3.1 g/dL (3.4-5.0); Albumin/Globulin Ratio 0.7 (0.8-1.8); Alk Phos 51 U/L (50-136); Anion Gap 8 mmol/L (6-16); Aspartate Aminotrans (AST/SGOT 18 U/L (12-37); Bilirubin, Total 0.7 mg/dL (0.1-1.0); Blood Urea Nitrogen 11 mg/dL (8-24); Bun/Creatinine Ratio 12.2 (12.0-20.0); CO2, Blood 25 mmol/L (21-32); Calcium, Blood 8.7 mg/dL (8.5-10.1); Chloride, Blood 102 mmol/L (98-108); Creatinine, Blood 0.91 mg/dL (0.40-1.00); Globulin, Blood 4.5 g/dL (2.2-4.0); Glomerular Filtration Rate >60 (60-); Glucose, Blood 104 mg/dL (70-99); Potassium, Blood 3.8 mmol/L (3.5-5.5); Sodium, Blood 135 mmol/L (136-145); Total Protein, Blood 7.6 g/dL (6.4-8.2); Troponin I <0.015 ng/mL (0.000-0.040)
[2020-02-01] MEDS ORDERED: BUPROPION XL150 M1 PO (20:58)
[2020-02-01 21:28] LABS: Magnesium, Blood 1.9 mg/dL (1.6-2.4)
[2020-02-02 02:15] LABS: BASOPHILS ABSOLUTE AUTO 0.02 K/mm3 (0.00-0.23); BASOPHILS PERCENT AUTO 0 % (0-2); EOSINOPHILS ABSOLUTE AUTO 0.02 K/mm3 (0.00-0.68); EOSINOPHILS PERCENT AUTO 0 % (0-6); Hematocrit 39.2 % (33.0-51.0); Hemoglobin 12.7 g/dL (11.5-16.0); IMMATURE GRAN ABSOLUTE AUTO 0.02 K/mm3 (0.00-0.10); IMMATURE GRAN PERCENT AUTO 0 % (0-1); LYMPHOCYTES ABSOLUTE AUTO 1.22 K/mm3 (0.84-5.20); LYMPHOCYTES PERCENT AUTO 16 % (21-46); MONOCYTES ABSOLUTE AUTO 0.73 K/mm3 (0.16-1.47); MONOCYTES PERCENT AUTO 9 % (4-13); Mean Corpuscular HGB 32.6 pg (26.0-34.0); Mean Corpuscular HGB Conc 32.4 g/dL (31.5-36.5); Mean Corpuscular Volume 101 fL (80-100); Mean Platelet Volume 9.4 fL (9.1-12.4); NEUTROPHILS ABSOLUTE AUTO 5.74 K/mm3 (1.96-9.15); NEUTROPHILS PERCENT AUTO 74 % (41-73); Platelet Count 253 K/mm3 (150-400); RDW Coefficient Variation 13.1 % (11.7-14.2); RDW Standard Deviation 48.5 fL (35.1-46.3); Red Blood Cell Count 3.89 M/mm3 (3.80-5.20); White Blood Cell Count 7.75 K/mm3 (4.00-11.30)
[2020-02-02 02:32] LABS: Alanine Aminotransfer (ALT/SGP 16 U/L (12-78); Albumin, Blood 2.9 g/dL (3.4-5.0); Albumin/Globulin Ratio 0.7 (0.8-1.8); Alk Phos 45 U/L (50-136); Anion Gap 6 mmol/L (6-16); Aspartate Aminotrans (AST/SGOT 20 U/L (12-37); Bilirubin, Total 0.7 mg/dL (0.1-1.0); Blood Urea Nitrogen 12 mg/dL (8-24); Bun/Creatinine Ratio 12.6 (12.0-20.0); CO2, Blood 26 mmol/L (21-32); Calcium, Blood 8.5 mg/dL (8.5-10.1); Chloride, Blood 104 mmol/L (98-108); Creatinine, Blood 0.95 mg/dL (0.40-1.00); Globulin, Blood 4.3 g/dL (2.2-4.0); Glomerular Filtration Rate >60 (60-); Glucose, Blood 108 mg/dL (70-99); Sodium, Blood 136 mmol/L (136-145); Total Protein, Blood 7.2 g/dL (6.4-8.2)
--- NOTE | 2020-02-02 05:48 | NUR ---
MASH TUB COOKER SUMMARY patient awake most of night. SOB with very minimal exertion. Patient would routinely jump into the 110-115 range being assisted to the bedside commode. Urgency noted with patient having to jump OOB multiple times to urinate. No complaints of discomfort other than SOB.
--- NOTE | 2020-02-02 12:16 | NUR ---
Patient is lying in bed and alert. Patient tells me about her medical issues, her family unit complications and her struggles with depression and anxiety. Patient shares personal information about the heaviness of heart and mind that she deals with. I listen empathically, normalize patient's experience, highlight the good things (inspiring things), provide anxiety containment, pastoral travel counselor automobile club and prayer. Patient responds well and shows signs of reduced stress and an elevated mood. I will continue to remain available to patient and family.
[2020-02-02 18:33] LABS: Source, Urine Clean Catch
--- NOTE | 2020-02-02 18:35 | NUR ---
SHIFT SUMMARY: TMAX 100.6 THIS EVENING; Cate AUGUSTIN FIELD CROP HARVEST CONTRACTOR (COVERING PROVIDER) NOTIFIED, ORDERED UA AND TYLENOL. UA SENT AND TYLENOL GIVEN. A&O X 2, APPEARS DISORIENTED AT TIMES. ON 2 L/MIN NC, SAT 88-94% DEPENDING ON ACTIVITY LEVEL, SIMON. LUNG SOUNDS CTAB. HR IRREG, RATE 99-120'S; IV METPROLOL GIVEN ONCE WITH RESULTING HR IN LOW 100'S, LASTED A SHORT TIME. UP TO BSC WITH 1 PERSON ASSIST, CAN BE IMPULSIVE. DYSPNEA INTERES WITH EATING. PLAN IS PULM CONSULT, HOPEFULLY TOMORROW.
[2020-02-02 18:51] LABS: Bilirubin, Urine Neg (Neg); Blood, Urine 5+ (Neg); Glucose Qualitative, Urine Neg (Neg); Ketones, Urine Neg (Neg); Leukocyte Esterase, Urine Neg (Neg); Nitrite, Urine Neg (Neg); Protein, Urine 1+ (Neg); Specific Gravity, Urine 1.015 (1.003-1.022); Urobilinogen, Urine NORM (Normal)
[2020-02-02 19:09] LABS: Appearance, Urine Hazy (Clear); Color, Urine Yellow (P-Yellow)
[2020-02-02 19:10] LABS: Squamous Epithelial Cells Mod /hpf (Few)
[2020-02-02 19:11] LABS: Bacteria Few /hpf; Mucus Light (0-Heavy)
--- NOTE | 2020-02-03 08:07 | NUR ---
DRIER OPERATOR HEAD SUMMARY Patient awake and up and down to side of bed then laying down all night. Several times, she pulled off her continuous 02 monitor as well as her CPAP or oxygen. twice in the earlier part of the evening, the patient's 02 sat dropped all the way into the mid 70's when she pulled off her oxygen and got up to the side of the bed before staff could get in to find her at bedside. Patients HR routinely ran A Fib in the 100-110 range. When she would jump up to the side of the bed, HR would elevate to the mid 130's, MD order received for 2 5mg doses of IV Lopressor (30 minutes apart) and a 2 mg dose of IV haldol. Patient remained quiet and calm for approximately 45 minutes before resuming jumping about the bed, pulling lines, etc. End of shift, this RN explained once more, that we were trying to help her get better, but she would have to participate in her recovery. Patient has a constant Flight of Ideas which make it extremely difficuly to remember instructions.
--- NOTE | 2020-02-03 08:15 | NUR ---
ASSUMED CARE OF PT- PT ALERT AND ORIENTED TO SELF, DOES NOT CALL APPROPRIATELY, BED ALARM ON FOR SAFETY. PT HAS FREQUENT URINATION. NON-ESSENTIAL TREMMORS AT BASELINE. AFIB ON TELE IN THE 1 TEENS. PT RECIEVED TWO DOSES OF IV BETA MAYE PRIOR TO SHIFT CHANGE. IV DC'D AND NEW ONE PLACED JUST AFTER REPORT. PT IMPULSIVE, HIGH FALL RISK, ON ELEQUIS AT HOME. NIGHT RN DID NOT PLACE SCD'S D/T PT SAFETY CONCERNS. PT BREATHING RAPID AND BP ELEVATED. PT IN DROPPLET ISOLATION FOR COVID R/O. O2 SATS DROP WITH ACTIVITY AND SLEEP. CPAP WAS ON AT SHIFT CHANGE. HR 122 ON CONT BIOX. PT HAS KLONOPIN ON HER HOME MED REC 0.5MG TID PRN BUT HAS NOTHING FOR ANXIETY AT THIS TIME. WILL CALL DR MILLS TO SEE ABOUT POSSIBLE TRANSFER TO HIGHER LEVEL OF CARE. PT LUNG SOUNDS DIMINISHED, TIGHT AND WHEEZY T/O. HR RAPID AND IRREGULAR.
--- NOTE | 2020-02-03 08:38 | NUR ---
SPOKE TO DR MILLS.- AWAITING ORDRR FOR PT HOME DOSE OF KLONOPIN. WILL ADMINISTER ONCE THE MED IS AVAILABLE. O2 SATS ON MORNING VITALS SHOW 97% THIS IS HIGHER THAN AT THE TIME OF ASSESSMENT. PT TO REMAIN ON MEDICAL FLOOR AT THIS TIME. DR MILLS IS REVIEWING HER CHART.
--- NOTE | 2020-02-03 15:12 | NUR ---
CALLED NURSING EMERGENCY SERVICES DISPATCHER FOR CLARIFICATION PT CHANGED TO MEDICAL STATUS, HOWEVER PT HAS BEEN ON MEDICAL FLOOR SINCE ADMIT. INSTRUCTED TO PLACE IN HOUSE TRANSFER ORDER TO MEDICAL FLOOR. ORDER PLACED. PT CURRENTLY MEDICAL STATUS.
[2020-02-03 16:33] LABS: Alanine Aminotransfer (ALT/SGP 20 U/L (12-78); Albumin/Globulin Ratio 0.6 (0.8-1.8); Alk Phos 52 U/L (50-136); Anion Gap 8 mmol/L (6-16); Aspartate Aminotrans (AST/SGOT 26 U/L (12-37); Bilirubin, Total 0.6 mg/dL (0.1-1.0); Blood Urea Nitrogen 18 mg/dL (8-24); Bun/Creatinine Ratio 19.3 (12.0-20.0); CO2, Blood 27 mmol/L (21-32); Calcium, Blood 8.6 mg/dL (8.5-10.1); Chloride, Blood 100 mmol/L (98-108); Creatinine, Blood 0.93 mg/dL (0.40-1.00); Globulin, Blood 5.1 g/dL (2.2-4.0); Glomerular Filtration Rate >60 (60-); Glucose, Blood 97 mg/dL (70-99); Potassium, Blood 4.2 mmol/L (3.5-5.5); Sodium, Blood 135 mmol/L (136-145); Total Protein, Blood 8.1 g/dL (6.4-8.2)
--- NOTE | 2020-02-03 18:17 | NUR ---
1715- SPOKE TO DR MILLS NEW ORDERS BEING PLACED FOR PO METOPROLOL WILL GIVE SHORTLY. PT HR HAS BEEN MAINTAINING AN AVERAGE OF 108 TO 110. 1730- PT NEEDED TO USE THE BATHROOM APPEARS MORE JITTERY AND ANXIOUS MEDICATED WITH KLONOPIN AND NEW METOPROLOL DOSE PO. PT TACYPNEIC O2 SATS WNL. RESP RATE ELEVATED.HR TACHY 130'S-140'S. 1750- PT HAS BEEN A 1PA FOR TRANSFERS NOW REQUIRES 2PA FOR TRANSFER INCREASE WEAKNESS. PT HAS DENIED CHEST PAIN THROUGH ALL. PLACED THE PT BACK IN BED MEDICATED WITH TYLENOL FOR FEVER 100.5.
[2020-02-03 18:57] LABS: PCO2 Arterial 37.1 mmHg (35-45); PO2 Arterial 105 mmHg (80-100); pH Blood Arterial 7.45 (7.35-7.45)
[2020-02-03 19:10] LABS: BASOPHILS ABSOLUTE AUTO 0.02 K/mm3 (0.00-0.23); BASOPHILS PERCENT AUTO 0 % (0-2); EOSINOPHILS ABSOLUTE AUTO 0.02 K/mm3 (0.00-0.68); EOSINOPHILS PERCENT AUTO 0 % (0-6); Hematocrit 42.4 % (33.0-51.0); Hemoglobin 13.9 g/dL (11.5-16.0); IMMATURE GRAN ABSOLUTE AUTO 0.04 K/mm3 (0.00-0.10); IMMATURE GRAN PERCENT AUTO 1 % (0-1); LYMPHOCYTES ABSOLUTE AUTO 0.74 K/mm3 (0.84-5.20); LYMPHOCYTES PERCENT AUTO 8 % (21-46); MONOCYTES ABSOLUTE AUTO 0.91 K/mm3 (0.16-1.47); MONOCYTES PERCENT AUTO 10 % (4-13); Mean Corpuscular HGB 33.2 pg (26.0-34.0); Mean Corpuscular HGB Conc 32.8 g/dL (31.5-36.5); Mean Corpuscular Volume 101 fL (80-100); Mean Platelet Volume 9.5 fL (9.1-12.4); NEUTROPHILS PERCENT AUTO 80 % (41-73); Platelet Count 240 K/mm3 (150-400); RDW Coefficient Variation 12.8 % (11.7-14.2); RDW Standard Deviation 48.3 fL (35.1-46.3); Red Blood Cell Count 4.19 M/mm3 (3.80-5.20); White Blood Cell Count 8.83 K/mm3 (4.00-11.30)
--- NOTE | 2020-02-03 19:15 | NUR ---
MARY ANNE RUIZ CAME TO SEE THE PT- PT HR TACHY 130'S-140'S ON TELE PT RECIEVED PO METOPROLOL. RESP RATE ELEVATED, PT MEDICATED FOR ANXIETY, FEVER, AND HR (PO). PLACED ON CPAP MACHINE. CALLED RT WITH STAT ORDER FOR ABG. NEW STAT LABS (SEE ORDER MANAGEMENT). TRANSFER ORDER FOR PT TO GO TO PCU. PT NOT APPROPRIATE FOR MEDICAL FLOOR. PT HR HAS TRENDED DOWN TO 120'S AFTER CPAP IN PLACE FOR 30 MIN WELL POST PO METOPROLOL. PT SEEMS TO BE LESS JITTERY AT THIS MOMENT BUT HER CONFUSION HAS INCREASED THIS EVENING. SPOKE TO PT DAUGHTER TODAY WHO STATED THE PT HAS HAD SOME CONFUSION AT HOME THAT HAS BECOME MUCH WORSE OVER THE LAST MONTH. PER THE DAUGHTER THE PT HAS BEEN HAVING EPISODES OF TACHYCARDIA DIZZINESS AND NEAR SYNCOPAL EVENTS AT HOME WHERE SHE BECOMES PALE AND DIAPHORETIC. PT WAS PLACED ON A HALTER MONITOR FOR A 14 DAY MONITOR. PT ON TELE HERE NO HALTER MONITOR IN PLACE.
--- NOTE | 2020-02-03 20:45 | NUR ---
PATIENT TRANSFER TO PCU 09. REPORT GIVEN TO LANDY CARRANZA.
--- NOTE | 2020-02-03 22:15 | NUR ---
TRANSFER NOTE REPORT RECEIVED FROM TERE OCONNOR. PATIENT SETTLED IN AND ORIENTED TO THE ROOM, UNIT, AND CALL LIGHT. PATIENT ABLE TO STATE LOCATION AND REASON FOR BEING AT THE HOSPITAL. HOWEVER, PATIENT APPEARS FORGETFUL AND IS DIFFICULT TO REDIRECT AT THIS TIME.
--- NOTE | 2020-02-04 04:15 | NUR ---
ELEVATED TEMP: BLANKETS REMOVED FROM PATIENT AND HEAT TURNED DOWN IN PATIENTS ROOM AT THIS TIME. WILL RECHECK TEMP AND PROVIDE TYLENOL IF NEEDED.
--- NOTE | 2020-02-04 06:31 | NUR ---
PAGED DR MILLS PAGED DR MILLS AT THIS TIME TO NOTIFY OF PATIENTS CONTINUED ELEVATED TEMP. WAITING TO HEAR BACK FROM AT THIS TIME.
--- NOTE | 2020-02-04 07:12 | NUR ---
UPDATE DR MILLS RETURNED CALL, ORDERS RECEIVED AND COMPLETED.
[2020-02-04 07:16] LABS: Source, Urine Catheter
[2020-02-04 07:19] LABS: Blood, Urine 3+ (Neg); Glucose Qualitative, Urine Neg (Neg); Ketones, Urine 1+ (Neg); Leukocyte Esterase, Urine 1+ (Neg); Nitrite, Urine Pos (Neg); Protein, Urine 2+ (Neg); Urobilinogen, Urine 1+ (Normal)
[2020-02-04 07:24] LABS: Appearance, Urine Hazy (Clear); Bilirubin, Urine 1+ (Neg); Color, Urine Amber (P-Yellow)
--- NOTE | 2020-02-04 07:25 | NUR ---
ASSUMED CARE: PT RESTING QUIETLY AT THIS TIME. NC AT 4L CURRENTLY. UA AND RESP PANEL SENT BY DIESEL SCOOP OPERATOR RN. NO ACUTE NEEDS OR CONCERNS AT THIS TIME.
[2020-02-04 07:26] LABS: Granular Casts 0-2 /lpf (0)
[2020-02-04 07:27] LABS: Amorphous Mod (0-Heavy); Bacteria Many /hpf; Squamous Epithelial Cells Few /hpf (Few)
--- NOTE | 2020-02-04 07:30 | NUR ---
SHIFT SUMMARY PATIENT APPEARS TO BE RESTING COMFORTABLY AT THIS TIME. FAN ON, HEAT IN ROOM DOWN AND NO BLANKETS. PATIENT APPEARED TO SLEEP ON AND OFF THROUGHOUT THE NIGHT. REPORT GIVEN TO ONCOMING RN.
[2020-02-04 08:59] LABS: Adenovirus Not Detected (NOT DETECT); Bordetella pertussis Not Detected (NOT DETECT); Chlamydophila pneumoniae Not Detected (NOT DETECT); Coronavirus 229E Not Detected (NOT DETECT); Coronavirus HKU1 Not Detected (NOT DETECT); Coronavirus NL63 Not Detected (NOT DETECT); Coronavirus OC43 Not Detected (NOT DETECT); Human Metapneumovirus Not Detected (NOT DETECT); Human Rhinovirus/Enterovirus Not Detected (NOT DETECT); Influenza A/2009-H1 Not Detected (NOT DETECT); Influenza A/H1 Not Detected (NOT DETECT); Influenza A/H3 Not Detected (NOT DETECT); Influenza B Not Detected (NOT DETECT); Mycoplasma pneumoniae Not Detected (NOT DETECT); Parainfluenza Virus 1 Not Detected (NOT DETECT); Parainfluenza Virus 2 Not Detected (NOT DETECT); Parainfluenza Virus 3 Not Detected (NOT DETECT); Parainfluenza Virus 4 Not Detected (NOT DETECT); Respiratory Syncytial Virus Not Detected (NOT DETECT)
--- NOTE | 2020-02-04 10:30 | NUR ---
WAX POT TENDER REPORTS ZIO PATCH FALLING OFF. DISCUSSED WITH DR MILLS WHO STATED SHE WOULD LOOK INTO HISTORY TO DETERMINE CURRENT ORDER FOR CARDIAC MONITORING. STATES SHE IS UNABLE TO FIND SO KEEP PATCH IN PLACE. ADHESIVE APPLIED TO ASSIST WITH THIS.
[2020-02-04 10:59] LABS: BASOPHILS ABSOLUTE AUTO 0.03 K/mm3 (0.00-0.23); BASOPHILS PERCENT AUTO 0 % (0-2); EOSINOPHILS ABSOLUTE AUTO 0.02 K/mm3 (0.00-0.68); EOSINOPHILS PERCENT AUTO 0 % (0-6); Hemoglobin 12.6 g/dL (11.5-16.0); IMMATURE GRAN ABSOLUTE AUTO 0.08 K/mm3 (0.00-0.10); IMMATURE GRAN PERCENT AUTO 1 % (0-1); LYMPHOCYTES ABSOLUTE AUTO 0.95 K/mm3 (0.84-5.20); LYMPHOCYTES PERCENT AUTO 12 % (21-46); MONOCYTES ABSOLUTE AUTO 0.54 K/mm3 (0.16-1.47); MONOCYTES PERCENT AUTO 7 % (4-13); Mean Corpuscular HGB 32.8 pg (26.0-34.0); Mean Corpuscular HGB Conc 32.3 g/dL (31.5-36.5); Mean Corpuscular Volume 102 fL (80-100); Mean Platelet Volume 9.8 fL (9.1-12.4); NEUTROPHILS ABSOLUTE AUTO 6.28 K/mm3 (1.96-9.15); NEUTROPHILS PERCENT AUTO 80 % (41-73); Platelet Count 218 K/mm3 (150-400); RDW Standard Deviation 48.9 fL (35.1-46.3); Red Blood Cell Count 3.84 M/mm3 (3.80-5.20)
[2020-02-04 11:17] LABS: Bun/Creatinine Ratio 18.5 (12.0-20.0); Calcium, Blood 8.2 mg/dL (8.5-10.1); Creatinine, Blood 1.19 mg/dL (0.40-1.00); Potassium, Blood 3.4 mmol/L (3.5-5.5)
--- NOTE | 2020-02-04 11:30 | NUR ---
PT REQUESTED TO LAY BACK DOWN IN BED. ROUSES FOR MEDICATION AND SIPS OF WATER BUT IS VERY LETHARGIC. BIPAP APPLIED TO NOSE WITH RT ASSISTANCE.
--- NOTE | 2020-02-04 17:30 | NUR ---
MACHINE OPERATOR CALLED RN TO ROOM DUE TO LOW CBG. METAL TUBE CUTTER DISCUSSED WITH WHO REQUESTED LAB CONFIRMATION. LAB WAS UNABLE TO DRAW PERIPHERALLY. METAL TUBE CUTTER INSTRUCTED TO REPEAT WITH GLUCOSE MACHINE. SEE LABS. DR AWARE. DR INSTRUCTED TO GIVE D50 NOW AND FEED PT AND RECHECK IN AN HOUR. ASSISTING PT WITH FEEDING AT THIS TIME.
--- NOTE | 2020-02-04 18:00 | NUR ---
ASSISTING PT WITH EATING. SHE IS VERY SHAKY, C/O BEING COLD. TEMP NORMAL. BLOOD PRESSURE TAKEN MANUALLY DUE TO MACHINE UNABLE TO COLLECT DUE TO SHAKING. TACHYPNEA NOTED WELL INCREASE IN OXYGEN NEED TO 6L FROM RA THIS AM. TACHYCARDIA NOTED IN 1TEENS. DISCUSSED WITH LABOR CREW SUPERVISOR. WILL MONITOR AT THIS TIME TO DETERMINE IF SEPTIC SYMPTOMS OR HYPOGLYCEMIA.
[2020-02-04 19:18] LABS: Glucose, Blood 191 mg/dL (70-99)
--- NOTE | 2020-02-04 19:36 | NUR ---
SHIFT SUMMARY: PT'S VITAL SIGNS IMPROVED AFTER EATING AND WAS ABLE TO TITRATE TO 3L NC. NOTED THAT PT HAS HAD MINIMAL OUTPUT THIS SHIFT. BLADDER SCAN RESULT OF 300. MOTTLING NOTED TO BILATERAL LEGS AND FINGERS COLD AND MOTTLED FINGER TIPS. DISCUSSED WITH NIGHT HEAD SHIPPER. GLUCOSE RESULT MUCH IMPROVED. NIGHT RN AND NIGHT HEAD SHIPPER AWARE. PT CONTINUES TO ASK TO GET UP OUT OF BED TO ATTEMPT VOID. NIGHT RN AT BEDSIDE TO ATTEMPT BSC. FAMILY HAS BEEN CONTACTED AND GIVEN UPDATE.
--- NOTE | 2020-02-04 23:07 | NUR ---
UPDATE BLANKETS HAVE ALREADY BEEN REMOVED FROM PATIENT AND THE HEAT HAS ALREADY BEEN TURNED DOWN IN PATIENT'S ROOM. PATIENT ALSO ALREADY HAS A FAN BLOWING ON HER. ICE PACKS ARE BEING PLACED TO HELP DECREASE PATIENT'S TEMP.
--- NOTE | 2020-02-04 23:45 | NUR ---
UPDATE NURSE PRACTIONER CHARLI NOTIFIED OF CONTINUED ELEVATED TEMP. ORDERS RECEIVED.
[2020-02-05 05:34] LABS: BASOPHILS ABSOLUTE AUTO 0.02 K/mm3 (0.00-0.23); BASOPHILS PERCENT AUTO 0 % (0-2); EOSINOPHILS ABSOLUTE AUTO 0.04 K/mm3 (0.00-0.68); EOSINOPHILS PERCENT AUTO 1 % (0-6); Hematocrit 37.1 % (33.0-51.0); IMMATURE GRAN ABSOLUTE AUTO 0.03 K/mm3 (0.00-0.10); IMMATURE GRAN PERCENT AUTO 0 % (0-1); LYMPHOCYTES ABSOLUTE AUTO 0.87 K/mm3 (0.84-5.20); LYMPHOCYTES PERCENT AUTO 11 % (21-46); MONOCYTES ABSOLUTE AUTO 0.62 K/mm3 (0.16-1.47); MONOCYTES PERCENT AUTO 8 % (4-13); Mean Corpuscular HGB 33.1 pg (26.0-34.0); Mean Corpuscular HGB Conc 32.3 g/dL (31.5-36.5); Mean Corpuscular Volume 102 fL (80-100); Mean Platelet Volume 9.6 fL (9.1-12.4); NEUTROPHILS ABSOLUTE AUTO 6.35 K/mm3 (1.96-9.15); NEUTROPHILS PERCENT AUTO 80 % (41-73); Platelet Count 207 K/mm3 (150-400); RDW Coefficient Variation 13.1 % (11.7-14.2); RDW Standard Deviation 49.5 fL (35.1-46.3); Red Blood Cell Count 3.63 M/mm3 (3.80-5.20); White Blood Cell Count 7.93 K/mm3 (4.00-11.30)
[2020-02-05 05:52] LABS: Albumin, Blood 2.3 g/dL (3.4-5.0); Albumin/Globulin Ratio 0.6 (0.8-1.8); Bilirubin, Total 0.5 mg/dL (0.1-1.0); Bun/Creatinine Ratio 21.6 (12.0-20.0); Calcium, Blood 8.2 mg/dL (8.5-10.1); Creatinine, Blood 1.48 mg/dL (0.40-1.00); Globulin, Blood 4.1 g/dL (2.2-4.0); Total Protein, Blood 6.4 g/dL (6.4-8.2)
--- NOTE | 2020-02-05 07:30 | NUR ---
SHIFT SUMMARY PATIENT PLEASENT BUT VERY CONFUSED AND FORGETFUL. PATIENT APPEARED TO SETTLE DOWN AND APPEARED TO SLEEP WELL THROUGHOUT THE SECOND HALF OF THE NIGHT. PATIENT APPEARED TO BE MOVING SELF ABOUT WELL IN THE BED. CPAP IN PLACE WHILE ASLEEP. CONTINUOUS BIOX IN PLACE. VITAL SIGNS CHARTED. REPORT GIVEN TO ONCOMING RN.
--- NOTE | 2020-02-05 10:33 | NUR ---
ASSUMED CARE OF PT AT 0700. REPORT FROM LANDY CARRANZA. PT c CPAP ON AT START OF SHIFT. REMOVED FOR BREAKFAST AND PLACED PT ON 3L O2 VIA NC. O2 SATS >95%. LUNGS DIMINISHED THROUGHOUT. PT P/W/D. DRY COUGH. NO MOTTLING NOTED TO EXTERMITIES. AFEBILE THIS AM. PT ANSWERING QUESTIONS APPROPRIATELY. FOLLOWS SIMPLE COMMANDS. PT STATES SHE IS TIRED. GOOD APPETITE AT BREAKFAST. AFIB ON MONITOR, RATE 90'S. BP STABLE. COVID RESULTS NEG THIS AM. REMOVED FROM ISOLATION. PT ABLE TO TAKE PILLS s DIFFICULTY. WILL CONTINUE TO MONITOR.
--- NOTE | 2020-02-05 17:28 | NUR ---
SHIFT SUMMARY PT DID WELL FIRST HALF OF SHIFT. THIS AFTERNOON, TEMP INCREASED TO 102.7, TYLENOL GIVEN, CURRENTLY 101.5. HR INCREASED TO 100-130'S. PT ALSO BECAME MORE TREMOROUS. SKIN MOTTLED ON LEGS. PT CONTINUES TO BE A&OX 3. UP MULTIPLE TIMES TO BSC. [address] ORANTES NOTIFIED. NO NEW ORDERS FOR ANTIPYRETICS, WILL CHANGED ANTIBIOTICS AND ORDER ECHO FOR TOMORROW. D5NS STARTED AT 100 ML/HR THIS SHIFT. CBG'S STABLE. LUNGS CLEAR. 02 SATS MID 90'S, O2 AT 4L VIA NC. GOOD APPETITE. UPDATED DAUGHTER OKSANA ON PHONE, PT ALSO SPOKE c HER. WILL CONTINUE TO MONITOR UNTIL REPORT TO ONCOMING NURSE.
[2020-02-06 04:32] LABS: Hematocrit 37.6 % (33.0-51.0); Hemoglobin 12.2 g/dL (11.5-16.0); Mean Corpuscular HGB 33.1 pg (26.0-34.0); Mean Corpuscular HGB Conc 32.4 g/dL (31.5-36.5); Mean Corpuscular Volume 102 fL (80-100); Mean Platelet Volume 9.9 fL (9.1-12.4); Platelet Count 228 K/mm3 (150-400); RDW Coefficient Variation 13.1 % (11.7-14.2); Red Blood Cell Count 3.69 M/mm3 (3.80-5.20); White Blood Cell Count 5.46 K/mm3 (4.00-11.30)
[2020-02-06 04:51] LABS: Albumin, Blood 2.2 g/dL (3.4-5.0); Albumin/Globulin Ratio 0.5 (0.8-1.8); Bilirubin, Total 0.4 mg/dL (0.1-1.0); Bun/Creatinine Ratio 21.8 (12.0-20.0); Calcium, Blood 7.9 mg/dL (8.5-10.1); Creatinine, Blood 1.1 mg/dL (0.40-1.00); Globulin, Blood 4.7 g/dL (2.2-4.0); Total Protein, Blood 6.9 g/dL (6.4-8.2)
[2020-02-06 05:01] LABS: BAND PERCENT MAN 14 % (0-8); BASOPHILS PERCENT MAN 0 % (0-2); EOSINOPHILS PERCENT MAN 2 % (0-6); LYMPHOCYTES ABSOLUTE MAN 0.21 K/mm3 (0.84-5.20); LYMPHOCYTES PERCENT MAN 4 % (21-46); MONOCYTES ABSOLUTE MAN 0.16 K/mm3 (0.16-1.47); MONOCYTES PERCENT MAN 3 % (4-13); NEUTROPHILS ABSOLUTE MAN 4.96 K/mm3 (1.96-9.15); SEG NEUTROPHILS PERCENT MAN 77 % (41-73); TOTAL CELLS COUNTED 100
--- NOTE | 2020-02-06 06:30 | NUR ---
SHIFT SUMMARY PATIENT MUCH MORE ORIENTED TONIGHT THAN LAST NIGHT. PATIENT ABLE TO CARRY ON A CONVERSATION WELL AND IS ABLE TO USE THE CALL LIGHT AND MAKE HER NEEDS KNOWN. PATIENT MEDICATED FOR AN ELEVATED TEMP PER EMAR. PATIENT'S HEAT TURNED DOWN AND BLANKETS REMOVED WELL. PATIENT APPEARS TO BECOME MUCH MORE CONFUSED WHEN HER TEMP IS ELEVATED, PATIENT ALSO HAS A VERY DIFFICULT TIME FOLLOWING INSTRUCTIONS WELL WHEN HER TEMP IS ELEVATED. PATIENT APPEARED TO NAP ON AND OFF THROUGHOUT THE NIGHT. IV FLUIDS ORDERED. PATIENT APPEARED TO MOVE HERSELF ABOUT IN BED WELL LAST NIGHT. WILL CONTINUE TO MONITOR PATIENT AND REPORT TO ONCOMING RN.
--- NOTE | 2020-02-06 07:26 | NUR ---
ASSUMED PATIENT CARE. PATIENT RESTING COMFORTABLY IN BED, CONVERSING WITH NURSING STAFF. NO SIGNS OF ACUTE DISTRESS, WCTM.
--- NOTE | 2020-02-06 19:19 | NUR ---
RELINQUISHED PATIENT CARE.
--- NOTE | 2020-02-06 19:21 | NUR ---
PATIENT SWITCH FROM Q2 TO Q4 BLOOD SUGAR STICKS, AT 1300 PATIENT HAD BLOOD SUGAR OF 55. ORANGE JUICE WAS GIVEN, RECHECKED AT 1400 WITH 126. MED REC WAS REQUESTED WITH PHARMACY, AND A CORRELATION WAS FOUND BETWEEN TIMING OF AZYTHROMYCIN AND LATER HYPOGLYCEMIC EPIDODES. THIS IS A RARE SIDE EFFECT, PATIENT WAS SWITCHED TO DOXYCYCLINE FOR SAME COVERAGE. PATIENT WAS AFEBRILE THIS SHIFT. PATIENT REMAINED ON NASAL CANNULA AT 4 L WITH STABLE O2 SATS.
[2020-02-07 04:13] LABS: BASOPHILS ABSOLUTE AUTO 0.02 K/mm3 (0.00-0.23); BASOPHILS PERCENT AUTO 0 % (0-2); EOSINOPHILS ABSOLUTE AUTO 0.11 K/mm3 (0.00-0.68); EOSINOPHILS PERCENT AUTO 2 % (0-6); Hematocrit 38.2 % (33.0-51.0); Hemoglobin 12.2 g/dL (11.5-16.0); IMMATURE GRAN ABSOLUTE AUTO 0.01 K/mm3 (0.00-0.10); IMMATURE GRAN PERCENT AUTO 0 % (0-1); LYMPHOCYTES ABSOLUTE AUTO 0.75 K/mm3 (0.84-5.20); LYMPHOCYTES PERCENT AUTO 16 % (21-46); MONOCYTES ABSOLUTE AUTO 0.59 K/mm3 (0.16-1.47); MONOCYTES PERCENT AUTO 13 % (4-13); Mean Corpuscular HGB 33.2 pg (26.0-34.0); Mean Corpuscular HGB Conc 31.9 g/dL (31.5-36.5); Mean Corpuscular Volume 104 fL (80-100); Mean Platelet Volume 9.8 fL (9.1-12.4); NEUTROPHILS ABSOLUTE AUTO 3.23 K/mm3 (1.96-9.15); NEUTROPHILS PERCENT AUTO 69 % (41-73); Platelet Count 173 K/mm3 (150-400); RDW Coefficient Variation 13.3 % (11.7-14.2); RDW Standard Deviation 51.3 fL (35.1-46.3); Red Blood Cell Count 3.67 M/mm3 (3.80-5.20); White Blood Cell Count 4.71 K/mm3 (4.00-11.30)
[2020-02-07 04:32] LABS: Alanine Aminotransfer (ALT/SGP 38 U/L (12-78); Albumin, Blood 2.1 g/dL (3.4-5.0); Albumin/Globulin Ratio 0.5 (0.8-1.8); Alk Phos 79 U/L (50-136); Anion Gap 7 mmol/L (6-16); Aspartate Aminotrans (AST/SGOT 53 U/L (12-37); Bilirubin, Total 0.4 mg/dL (0.1-1.0); Blood Urea Nitrogen 13 mg/dL (8-24); Bun/Creatinine Ratio 16.2 (12.0-20.0); CO2, Blood 21 mmol/L (21-32); Calcium, Blood 8.1 mg/dL (8.5-10.1); Chloride, Blood 112 mmol/L (98-108); Globulin, Blood 4.5 g/dL (2.2-4.0); Glomerular Filtration Rate >60 (60-); Glucose, Blood 100 mg/dL (70-99); Potassium, Blood 4.3 mmol/L (3.5-5.5); Sodium, Blood 140 mmol/L (136-145); Total Protein, Blood 6.6 g/dL (6.4-8.2)
--- NOTE | 2020-02-07 05:00 | NUR ---
SHIFT SUMMARY. BLOOD SUGAR WNL ALL NOC. KEPT CPAP ON WELL A LOT OF NOC. FREQ UP W/ 2 PERSON ASSIST TO BSC. AF AVERAGE 90-110 AT REST ., OOB 120. WHEEZES T/O AT START OF SHIFT . LATER CLEARING MORE W/ ENC STRONG COUGH AND DEEP BREATHE. FEW BBC NOTED. MENTATAION CLEAR AND NO CONFUSION TONIGHT. MANY TIMES FRUSTRATED AND SPEAKING IN FOREIGN LANGUAGE . NO ALTERED MENTATION WHEN FREVER 101. REDUCED QUICKLY W/ TYLENOL AND ICE PACKS. BY 0330 WHEN OOB W/ 2 PERSON ASSIST , TACHEPNEA NOTED AND NOT RESOLVING W/ REST. SEVERE WHEEZING AND SOB.AF HR 150 AND SUSTAINING 140. PLACED CALL TO DR WRIGHT BY 0550. ORDERED CXR AND BD PROTOCOL. REPORTED SATS MOT MAINTAINED AND NEEDED OXIMIZER AT 6L. ALL NOC NEED WAS 3L W/ OR WITHOUT CPAP. TOO TACHEPNEC TO PLACE BACK ON BIPAP. NOW MD ORDERED. CARDIZEM 10 MG IV NOW AND GIVEN. NO IMMEDIATE RESULT PT INSISTS ON GETTING OOB TO VOID. PLACED CATHETER # 14 . WILL REQUEST ORDER WHEN MD HERE FROM [facility]. CALMING AND LESS FRUSTRATION W/ BLADDER RELIEF. REPORT TO DAY SHIFT AND AF HR 120 .
--- NOTE | 2020-02-07 08:03 | NUR ---
ELEVATED HEART RATE/BLOOD PRESSURE PT'S HEART RATE 130'S-150'S IN AFIB. BLOOD PRESSURE ALSO ELEVATED. SEE VITAL SIGNS. THIS RN CALLED AND LEFT MESSAGE FOR DR. VALDEZ. WILL CONTINUE TO MONITOR. CALL LIGHT IN REACH.
[2020-02-07 09:23] LABS: PCO2 Arterial 32.6 mmHg (35-45); PO2 Arterial 114 mmHg (80-100); pH Blood Arterial 7.34 (7.35-7.45)
--- NOTE | 2020-02-07 10:00 | NUR ---
RAPID RESPONSE DR. VALDEZ IN TO SEE PT AROUND 0900 AND ORDERED FOR PT TO HAVE A ONE TIME DOSE OF METOPROLOL SUCCINATE. WHILE THIS RN WAS PULLING MEDICATION FOR PT, PT PULLED CPAP OFF AND AND OXYGEN SATURATION WAS IN LOW 80'S. HEART RATE ELEVATED 130-150'S AND PT BECOMING VERY RESTLESS AND WORKING TO BREATH. A RAPID RESPONSE WAS CALLED AT [address] VALDEZ, RT, TIMBER GIRDLER IN WITH PT. PT RECEIVED IV LASIX AND IV METOPROLOL. SEE EMAR FOR MEDICATION DOSES. PT CONTINUE TO HAVE DIFFICULTY BREATHING AND HEART RATE 130-150'S. CRYPTANALYST CONSULTED ON PT AND PT WILL BE TRANSFERRED TO ICU WHEN BED AVAILABLE.
--- NOTE | 2020-02-07 10:06 | NUR ---
Upon responding to a rapid response for patient and learning of patient's anxiety, I provide a prayer of peace and lifting of fears. Patient responds well and shows signs of reduced stress. I will continue to remain available to patient and family.
--- NOTE | 2020-02-07 10:15 | NUR ---
Ora smith called for patient. Dr Grubbs at bedside. pt increased dyspnea and heart rate. notifed family and called with three updates. Will contineu to follow with family and see if we need to have them come in . intesivisit consult. pt still aggitatied but able to communicate. Nods yes to having a headache no to pain in her back or joints . just not painfull but uncomfortable. Wants to drink water but unable totolerate. plan is to get CT scan of chest.
--- NOTE | 2020-02-07 10:56 | NUR ---
UNPON ENTERING THE ROOM PT IS PULLING AT THE BIPAP AND MOVING AROUND IN THE BED A LOT. PT STATES SHE IS IN HER LIVING ROOM. REPORT FROM APPRAISER ART OF PT HEART RATE IN THE 150'S. REORIENTED PT TO THE HOSPITAL. PT INSTRUCTED TO PRAY AND APPEARS TO BE CALMING DOWN. LESS AGITATION IS NOTED. PT BREATHING IS NOTED TO BE IN THE 30'S, AND HEART RATE IN THE 130'S. PT IS GIVEN BEADS TO SAY HER PRAYERS. APPEARS TO BE HELPING WITH AGITATION. WILL CONTINUE TO REMAIN AT BEDSIDE UNTIL PA IS ABLE TO BE MOVE TO ICU AND IS MORE STABLE.
--- NOTE | 2020-02-07 12:02 | NUR ---
Patient arrived via gurney from PCU 9 and awaiting report. She was a 4 person slide transfer. She arrived on 10L NC and quickly transfered to BIPAP 14/8 40% and increased to 50% for sats . HR 120's and RR 25-30 with Afib RVR will treat with cardizem bolus and gtt. She has resendiz place in PCU and is draining clear urine.
--- NOTE | 2020-02-07 14:42 | NUR ---
Patient is currently resting. She is having BIPAP settings reduced to 12/[address] Zhang at 50% FiO2. Diltiazem gtt started at 10 mg/hr and remains at 10mg/hr and rates are now 80-90's. She is also on 0.4 mcg/kg/hr. She has resendiz and emptied 1500ml clear urine since arrived in ICU. Have updated family several times and Les is contact.
--- NOTE | 2020-02-07 16:33 | NUR ---
Patient has been r/o for Covid -19 for second time. Cardizem was decreased to 5 mg/hr and preceded to 0.2 mcg/kg/hr and she awakens to verbal stimuli and confused upon awakening. Oriented to self and place. She remains in bilateral soft wrist restraints and still is trying to reach up and remove bipap. Settings 12/6 at 50% and sats mid 90%'s Acuña continues to drain clear urine.
[2020-02-07 18:19] LABS: Vancomycin, Trough 8.1 ug/mL (5.0-10.0)
--- NOTE | 2020-02-07 18:37 | NUR ---
No significant changes with patient. Another powerglide placed in ROLAN due incompatability, 18ga 10cm. Precedex 0.2 mcg/kg/hr, cardizem 5 mg/hr at rate a-fib 70's and several antibiotics. Acuña urine yellow. She remains on BIPAP 12/6 50% and sats 93%. She awakens with verbal and care.
--- NOTE | 2020-02-07 20:03 | NUR ---
ASSUMED PT CARE AT 191 PT SLEEPING IN BED WITH BIPAP IN PLACE 09/09; FIO2 45%. PT ABLE TO FOLLOW SIMPLE COMMANDS. WHEN ASKED TO OPEN EYES, PT SQUEEZED THEM SHUT AND SHOOK HER HEAD NO. WHEN ASKED IF IT WAS DUE TO THE AIR FROM THE BIPAP BLOWING IN HER FACE, PT SHOOK HER HEAD YES. REMOVED BIPAP TEMPORARILY TO ATTEMPT TO ASSESS PUPILS; PT SQUEEZED HER EYES SHUT AGAIN AND SHOOK HER HEAD NO. WHEN ASKED IF PT KNEW WHERE SHE WAS SHE STATED SHE DIDN'T KNOW. PT APPEARS ALERT AND ORIENTED TO SELF. PRECEDEX TURNED OFF AT THIS TIME D/T PT'S MINIMAL VERBAL RESPONSES TO QUESTIONS. CARDIZEM GTT INFUSING AT 5MG/HR. PT REMAINS IN AFIB WITH HR 70-80'S. BP'S STABLE; SEE FLOWSHEET. BILATERAL SOFT WRIST RESTRAINTS REMOVED UPON ASSUMPTION OF CARE; WILL CONTINUE TO REASSESS THE NEED DEPENDING ON PT'S COMPLIANCE WITH BIPAP. FLORES CATHETER IS PATENT AND DRAINING CLEAR YELLOW URINE WITH SEDIMENT TO GRAVITY. CALL LIGHT WITHIN REACH; WILL CONTINUE TO MONITOR PT'S NEEDS ON AN ONGOING BASIS.
--- NOTE | 2020-02-07 21:33 | NUR ---
UPDATE AFTER ABOUT AN HOUR AND A HALF OF THE PRECEDEX BEING OFF AND PT BEING OUT OF RESTRAINTS; PT BECAME ANXIOUS ABOUT BIPAP AND STARTED PULLING ON MASK AGAIN. RESTARTED PRECEDEX AT 0.2MCG/KG/HR. NO NEED FOR RESTRAINTS AT THIS TIME. WILL CONTINUE TO ASSESS.
[2020-02-08 05:02] LABS: Base Excess Venous 2.2 mmol/L; PCO2 Venous 42.7 mmHg (38-42); PO2 Venous 57.1 mmHg (38-42); pH Blood Venous 7.41 (7.34-7.37)
[2020-02-08 05:04] LABS: BASOPHILS ABSOLUTE AUTO 0.02 K/mm3 (0.00-0.23); BASOPHILS PERCENT AUTO 0 % (0-2); EOSINOPHILS ABSOLUTE AUTO 0.11 K/mm3 (0.00-0.68); EOSINOPHILS PERCENT AUTO 2 % (0-6); Hematocrit 30.5 % (33.0-51.0); IMMATURE GRAN ABSOLUTE AUTO 0.03 K/mm3 (0.00-0.10); IMMATURE GRAN PERCENT AUTO 0 % (0-1); LYMPHOCYTES ABSOLUTE AUTO 0.96 K/mm3 (0.84-5.20); LYMPHOCYTES PERCENT AUTO 13 % (21-46); MONOCYTES ABSOLUTE AUTO 0.65 K/mm3 (0.16-1.47); MONOCYTES PERCENT AUTO 9 % (4-13); Mean Corpuscular HGB Conc 32.8 g/dL (31.5-36.5); Mean Platelet Volume 9.8 fL (9.1-12.4); NEUTROPHILS ABSOLUTE AUTO 5.63 K/mm3 (1.96-9.15); NEUTROPHILS PERCENT AUTO 76 % (41-73); Platelet Count 255 K/mm3 (150-400); RDW Coefficient Variation 13.2 % (11.7-14.2); RDW Standard Deviation 49.2 fL (35.1-46.3); Red Blood Cell Count 3.03 M/mm3 (3.80-5.20)
[2020-02-08 05:05] LABS: Mean Corpuscular Volume 101 fL (80-100)
[2020-02-08 05:26] LABS: Albumin, Blood 1.8 g/dL (3.4-5.0); Albumin/Globulin Ratio 0.4 (0.8-1.8); Bilirubin, Total 0.6 mg/dL (0.1-1.0); Bun/Creatinine Ratio 16.2 (12.0-20.0); Calcium, Blood 7.9 mg/dL (8.5-10.1); Creatinine, Blood 0.99 mg/dL (0.40-1.00); Potassium, Blood 3.2 mmol/L (3.5-5.5); Total Protein, Blood 5.8 g/dL (6.4-8.2); Troponin I 0.033 ng/mL (0.000-0.040)
[2020-02-08 06:08] LABS: Source, Urine Catheter
--- NOTE | 2020-02-08 06:12 | NUR ---
END OF SHIFT SUMMARY PT MORE ALERT AND INTERACTIVE THE SHIFT PROGRESSED, EVEN AFTER PRECEDEX WAS RESTARTED AT 0.2MCG/KG/HR. SHE WAS UTILZING HER CALL LIGHT APPROPRIATELY FOR TOILETING, REPOSITIONING, AND WATER NEEDS. SHE IS ALERT AND ORIENTED TO SELF; CONFUSED/FORGETFUL TO PLACE AND TIME. FOLLOWS DIRECTIONS ADEQUATELY AND MAINTAINS CONVERSATION APPROPRIATELY. PT WAS COMPLIANT WITH BIPAP; SETTINGS 12/6; FIO2 35%, BACKUP RATE 14. HOWEVER, PT REQUESTED A BREAK THIS AM AND WAS PLACED ON 4L VIA NC; BIOX 95%. LUNG SOUNDS REMAIN COARSE T/O WITH INSPIRATORY CRACKLES TO BILATERAL BASES, AND EXPIRATORY WHEEZES T/O ALL LOBES. PT HAS REMAINED IN AFIB WITH HR 70-80'S; BP'S STABLE, SEE FLOWSHEET. CARDIZEM GTT REMAINS AT 5MG/HR. PRECEDEX TURNED OFF WHEN CHANGED TO NC; WILL CONTINUE TO REASSESS NEED. FLORES CATHETER IS PATENT AND DRAINING CLEAR YELLOW URINE WITH SEDIMENT TO GRAVITY; UA SENT S/P FLORES CATHETER PLACEMENT THAT WAS PERFORMED YESTERDAY MORNING IN PCU PRIOR TO TRANSFER TO ICU. CALL LIGHT WITHIN REACH; PT IS ABLE TO MAKE NEEDS KNOWN. WILL CONTINUE TO MONITOR UNTIL REPORT IS HANDED OFF TO ONCOMING RN.
[2020-02-08 06:23] LABS: Bilirubin, Urine Neg (Neg); Blood, Urine 1+ (Neg); Glucose Qualitative, Urine Neg (Neg); Ketones, Urine Neg (Neg); Leukocyte Esterase, Urine 1+ (Neg); Nitrite, Urine Neg (Neg); Protein, Urine Neg (Neg); Urobilinogen, Urine NORM (Normal)
[2020-02-08 06:49] LABS: Appearance, Urine Clear (Clear); Color, Urine Yellow (P-Yellow)
[2020-02-08 06:50] LABS: Bacteria Rare /hpf; Squamous Epithelial Cells Few /hpf (Few)
--- NOTE | 2020-02-08 07:12 | NUR ---
Received report from Gadiel CARRANZA. Patient on right side with HOB at 30 degree. She is sleeping when entering for report. She is on 4L NC and sats low to mid 90%'s. Precedex remains off. She has bilateral Powerglides in upper arms, both dressings intact and sites WNL's, Left side flushed , caps changes and SL'd. The right side infusing NS TKO and Diltizem at 5 mg/hr for A-Fib HR 70-80's. She has resendiz draining to gravity light yellow urine. BiPAP at bedside if needed.
--- NOTE | 2020-02-08 08:30 | NUR ---
Received report from Gadiel CARRANZA. Patient sitting up in bed awake and able to communicate his needs . He inflates and deflates cuff of trach by himself No changes in home vent setting and sats mid 90%'s. He states he has been constipated and has been asking for bed stern and did digital chest and has soft and hard stool unable to get all. He has been SR 60-70's. He uses urinal appropriately and also places towel. He denies any SOB. Positions self in bed for own comfort and mostly to right side. Coccyx is red and tender and he states for about a week.
--- NOTE | 2020-02-08 10:25 | NUR ---
Patient has been awake and tolerated small amount of breakfast. Dr Velasquez has been by and she is PCU status and changed her over to PO Cardizem 120 mg Daily and will stop Cardizem gtt at 1100. She remains on 4L O2 via NC and sats low 90%'s. Cleaned nose out and moisturized and will start on saline spray. She has been on phone several times. She place her uppers in mouth after cleaned. VSS See EMR.
--- NOTE | 2020-02-08 10:35 | NUR ---
Call to famil for supportive care.
--- NOTE | 2020-02-08 12:00 | NUR ---
We have tried several attemps with bed stern with minimal output and placed suppositorey and had a little more hard out. Valarie pulls self up in bed by rails. He ate a little breakfast but [facility]uy [facility] and ordered veggrachle moniqueger. Dr Zhang in with patient. He has been critical care nurse practitioner [facility] many times and talked with him to be more patient between visits. He continues to use syringe to inflate and deflate cuff as needed. He is very fovcused on his BM's. VSS, no new orders from Dr Zhang.
--- NOTE | 2020-02-08 12:14 | NUR ---
Patient remains up in chair and states she would rather stay there. PT worked with her briefly and now she is tired and wants lights off and will try to snack on lunch. VSS, See EMR. Cardizem off She remains on 4L O2 via NC and sats low 90%'s.
--- NOTE | 2020-02-08 13:02 | NUR ---
PT ASSISTED BACK TO BED AND PLACED ON BIPAP AT THIS TIME, PT WAS VERY DYSPNEIC WITH EXERTION WHILE GETTING BACK TO BED. REPORTED THIS OFF TO TERE RILEY.
--- NOTE | 2020-02-08 13:58 | NUR ---
Patient has been resting and has not been vocational psychologist light as frequent. VSS. No new significant changes./
--- NOTE | 2020-02-08 14:33 | NUR ---
RECEIVED REPORT FROM OSVALDO EXTRUDING PRESS OPERATOR, AT 1430. PATIENT TO TRANSFER TO ROOM 337.
--- NOTE | 2020-02-08 15:28 | NUR ---
Gave report to Med RN and and patient started to c/o siatic pain and medicated with 25 mcg of Fentanyl. She was on 5L O2 via NC and sats were low to mid 80%'s and increased O2 to 6 then 7 L and had sats mid 80's without great recovery. She states no distress or SOB, checked sats in several areas and no change. Placed lidocaine gel in nostrils as the O2 was irritating nares. HR 80-9-'s and systolics 120-130. RR incewased 20's and just placed back on bipap 12/6 at 35% increased to 50% to maintain low 90's.
--- NOTE | 2020-02-08 15:47 | NUR ---
Initial spiritual care note: Mrs. Banks was irritable when I visited this morning. She declined prayer/spiritual support, but took the rosary I brought her. I advised I would remain available to provide prayer/communion/encouragement.
--- NOTE | 2020-02-08 18:40 | NUR ---
Patient has rigo very restless and has needed multiple reassurance. She remaions on BIPAP 12/6 50% and remains at 94% sats. She has rested off and on but seem a little confused at times. VSS, HR 80-90's and systolic 120's. Bilateral upper arm Powerglides intacct and flushed. Patient continues to have left siatic pain.
--- NOTE | 2020-02-08 22:20 | NUR ---
TAKEN OFF BIPAP AND PLACED ON O2 AT 6L/NC, TOLERATING WELL. O2 SAT IS 92-96%. C/O LEFT JAW PAIN, REQUESTED PAIN PILLS. TYLENOL 650MG GIVEN PO PER MD ORDERS, TOLERATED WELL. DENIES FURTHER NEEDS OR WANTS AT THIS TIME. SAFETY MEASURES IN PLACE. WILL CONTINUE TO MONITOR.
[2020-02-09 03:51] LABS: BASOPHILS ABSOLUTE AUTO 0.03 K/mm3 (0.00-0.23); BASOPHILS PERCENT AUTO 0 % (0-2); EOSINOPHILS ABSOLUTE AUTO 0.12 K/mm3 (0.00-0.68); EOSINOPHILS PERCENT AUTO 1 % (0-6); Hematocrit 32.3 % (33.0-51.0); Hemoglobin 10.7 g/dL (11.5-16.0); IMMATURE GRAN ABSOLUTE AUTO 0.07 K/mm3 (0.00-0.10); IMMATURE GRAN PERCENT AUTO 1 % (0-1); LYMPHOCYTES ABSOLUTE AUTO 0.92 K/mm3 (0.84-5.20); LYMPHOCYTES PERCENT AUTO 11 % (21-46); MONOCYTES ABSOLUTE AUTO 0.81 K/mm3 (0.16-1.47); MONOCYTES PERCENT AUTO 10 % (4-13); Mean Corpuscular HGB 32.9 pg (26.0-34.0); Mean Corpuscular HGB Conc 33.1 g/dL (31.5-36.5); Mean Corpuscular Volume 99 fL (80-100); Mean Platelet Volume 9.8 fL (9.1-12.4); NEUTROPHILS ABSOLUTE AUTO 6.53 K/mm3 (1.96-9.15); NEUTROPHILS PERCENT AUTO 77 % (41-73); Platelet Count 295 K/mm3 (150-400); RDW Coefficient Variation 13.2 % (11.7-14.2); RDW Standard Deviation 47.7 fL (35.1-46.3); Red Blood Cell Count 3.25 M/mm3 (3.80-5.20); White Blood Cell Count 8.48 K/mm3 (4.00-11.30)
[2020-02-09 04:15] LABS: Albumin/Globulin Ratio 0.4 (0.8-1.8); Bilirubin, Total 0.9 mg/dL (0.1-1.0); Bun/Creatinine Ratio 15.2 (12.0-20.0); Calcium, Blood 8.2 mg/dL (8.5-10.1); Creatinine, Blood 1.05 mg/dL (0.40-1.00); Globulin, Blood 4.5 g/dL (2.2-4.0); Potassium, Blood 3.1 mmol/L (3.5-5.5); Total Protein, Blood 6.5 g/dL (6.4-8.2)
--- NOTE | 2020-02-09 06:32 | NUR ---
SHIFT SUMMARY PATIENT SLEPT WELL THROUGH NIGHT. TOOK OFF BIPAP AROUND 21:00 LAST NIGHT, WAS ABLE TO TITRATE OXYGEN DOWN TO 1L, MAINTAINING SPO2 ~ 94%. PAIN WELL CONTROLLED WITH FENTANYL, RECEIVED 1 ADDITIONAL DOSE LAST NIGHT, PATIENT SLEPT REST OF NIGHT. ASSESSMENT IS CHARTED. VSS. WILL CONTINUE TO MONITOR.
--- NOTE | 2020-02-09 09:54 | NUR ---
ASSUMPTION OF CARE ASSUMED CARE OF PT @ 0700, PT RESTING IN BED ORIENTED TO SELF, LOCATION, EVENT, AND FOLLOWING DIRECTIONS. PT ON 2L PER NC TITRATED TO 3L TO MAINTAIN O2 SATURATIONS>90%. MONITOR SHOWS AFIB, HR 90'S, INCREASES TO 100-115 WITH ACTIVITY, BP STABLE. PT TOLERATING PO INTAKE, SWALLOWS PILLS WHOLE WITH WATER. FLORES IN PLACE DRAINING YELLOW URINE. BED BATH COMPLETED THIS AM, PT REPORTS SIGNIFICANT PAIN UNDERNEATH BILATERAL BREASTS, REDDENED/EXCORIATED SKIN NOTED. DR VALDEZ TO ROOM, DISCUSSED AM LABS LASIX ORDER CHANGED, ABX TO BE INFUSED x5 DAYS, NYSTATIN POWDER ORDERED.
--- NOTE | 2020-02-09 16:29 | NUR ---
Case Conference Note Reviewed chart and spoke with Pt's Bedside RN Teri. Discussed case including Pt's progress. Teri reports Pt is showing improvement today. Pt currently off BIPAP and is on 3 L O2 via NC. Pt has worked with OT and PT. Attempted to contact son and daughter for update. Left voicemail with request for a return phone call. Palliative Care will remain available.
--- NOTE | 2020-02-09 16:42 | NUR ---
SHIFT SUMMARY/TRANSFER TO PCU PT REMAINS ORIENTED T/O SHIFT, 02 SATURATIONS>90% WITH 1-2L PER NC, HUMIDIFIED, MONITOR SHOWS AFIB WITH HR 70'S-80'S, STABLE BP. PT TOLERATING PO INTAKE, SWALLOWING PILLS WHOLE. FLORES REMAINS IN PLACE, DRAINING YELLOW URINE. PT REPORTS PAIN TO THE L HIP/LEG (HX SCIATICA), WARM K-PAD ADEQUATE FOR PAIN MANAGEMENT. PT PARTICIPATING WITH PT/OT, TOLERATING AMBULATION WITH WALKER WELL WITH NO INCREASE IN SOB OR HR. CALL LIGHT WITHIN REACH, PT USING APPROPIATELY.
--- NOTE | 2020-02-09 17:26 | NUR ---
REPORT GIVEN TO SAUNDRA CARRANZA
--- NOTE | 2020-02-09 17:51 | NUR ---
PT LEAVING ICU FOR PCU 9
--- NOTE | 2020-02-09 18:21 | NUR ---
ARRIVAL TO PCU FROM ICU PATIENT AMBULATED FROM WHEELCHAIR TO UNIT BED WITH STEADY GAIT. STOOD AND DANCED TO STRETCH AND RELAX MUSCLES FROM LAYING IN BED. OXYGEN IN PLACE. FLORES CATH IN PLACE. NO ACUTE DISTRESS NOTED. PATIENT DENIES ANY NEEDS AT THIS TIME. ORIENTED TO UNIT. WILL CONTINUE TO MONITOR AND GIVE REPORT TO NOC SHIFT RN.
[2020-02-09 22:51] LABS: Vancomycin, Trough 15.5 ug/mL (5.0-10.0)
[2020-02-10 03:53] LABS: BASOPHILS ABSOLUTE AUTO 0.02 K/mm3 (0.00-0.23); BASOPHILS PERCENT AUTO 0 % (0-2); EOSINOPHILS ABSOLUTE AUTO 0.26 K/mm3 (0.00-0.68); EOSINOPHILS PERCENT AUTO 4 % (0-6); Hematocrit 33.5 % (33.0-51.0); Hemoglobin 11.1 g/dL (11.5-16.0); IMMATURE GRAN ABSOLUTE AUTO 0.05 K/mm3 (0.00-0.10); IMMATURE GRAN PERCENT AUTO 1 % (0-1); LYMPHOCYTES ABSOLUTE AUTO 0.99 K/mm3 (0.84-5.20); LYMPHOCYTES PERCENT AUTO 14 % (21-46); MONOCYTES ABSOLUTE AUTO 0.67 K/mm3 (0.16-1.47); MONOCYTES PERCENT AUTO 9 % (4-13); Mean Corpuscular HGB 33.1 pg (26.0-34.0); Mean Corpuscular HGB Conc 33.1 g/dL (31.5-36.5); Mean Corpuscular Volume 100 fL (80-100); Mean Platelet Volume 9.7 fL (9.1-12.4); NEUTROPHILS ABSOLUTE AUTO 5.14 K/mm3 (1.96-9.15); NEUTROPHILS PERCENT AUTO 72 % (41-73); Platelet Count 369 K/mm3 (150-400); Red Blood Cell Count 3.35 M/mm3 (3.80-5.20); White Blood Cell Count 7.13 K/mm3 (4.00-11.30)
[2020-02-10 04:03] LABS: Bun/Creatinine Ratio 13.5 (12.0-20.0); Calcium, Blood 8.6 mg/dL (8.5-10.1); Creatinine, Blood 0.96 mg/dL (0.40-1.00); Potassium, Blood 3.2 mmol/L (3.5-5.5)
--- NOTE | 2020-02-10 05:56 | NUR ---
SHIFT SUMMARY PT SLEEPING IN ROOM COMFORTABLY AT THIS TIME. NO AUTE CHANGES IN STATUS T/O NIGHT. PT DID NOT SLEEP UNTIL LATE IN MORNING. PT WAS RESTLESS T/O NIGHT AND REPORTED SOME ANXIETY. PT WAS MEDICATED PER EMAR FOR ANXIETY. RESP EVEN UNLABORED ON NC WHILE AWAKE W/SATS >92% ON 3L. PT WORE CPAP WHEN SLEEPING RESP EVEN UNLABORED SATS >92%. PT DENIED CP, REPORTS DYSPNEA W/ EXERTION. DENIED OTHER NEEDS. FLORES DRAINING TO GRAVITY. CALL [facility] IN REACH.
--- NOTE | 2020-02-10 08:38 | NUR ---
ASSUMED CARE AT 0700, REPORT FROM TERE STEPHENSON. RESTING IN BED WITH LIGHTS OUT. 3L O2 VIA NC. FLORES CATH IN PLACE DRAINING CLEAR YELLOW URINE. AWAKE AND ORIENTED AT THIS TIME, DENIES NEEDS. WILL CONTINUE TO MONITOR.
--- NOTE | 2020-02-10 13:53 | NUR ---
Spiritual care visit conducted. Patient is sitting on a chair and alert. Patient tells me that she has improved greatly and is excited about going home today. I provide a prayer of blessing for patient.
--- NOTE | 2020-02-10 18:03 | NUR ---
SHIFT SUMMARY: ALERT WITH INTERMITANT FORGETFULLNESS DURING SHIFT. O2 WEANING STARTED TODAY. CURRENTLY 2L O2 NC. O2 EVAL TODAY FOR HOME O2. [facility]DR[facility] TODAY PER PT REQUEST. AMBULATES TO RESTROOM WITH WALKER AND STANDBY ASSIST. PROVIDER DISCUSSED CONTINUED MONITORING THROUGHTOUT THE NIGHT AND POSSIBLE DISCHARGE TOMORROW. PT AGREEABLE WITH PLAN.
--- NOTE | 2020-02-10 21:23 | NUR ---
ASSUMED CARE OF PATIENT AT APPROXIMATELY 1900 FROM NURYS Olson RN. PATIENT ALERT AND ORIENTED TO SELF, AND LOCATION; FORGETFUL AT TIMES. PATIENT PULLS OXYGEN OFF AT TIMES; NEEDS ENCOURAGEMENT TO BREATH THROUGH NOSE. PATIENT DENIES PAIN, NUMBNESS, TINGLING, DIZZINESS AND NAUSEA. AFIB ON TELE W/ A RATE OF 80-100; OXYGEN SATURATION ABOVE 90% ON 1-2LPM VIA NC; CPAP IN ROOM. PG S/L. ONE ASSIST W/ FWW TO BEDSIDE COMMODE TO URINATE. PATIENT CURRENTLY RESTING IN BED; CALL LIGHT IN REACH; BED IN LOWEST POSISTION; BED ALARM ON; WILL CONTINUE TO MONITOR AND ASSESS UNTIL END OF SHIFT.
[2020-02-11 04:23] LABS: BASOPHILS ABSOLUTE AUTO 0.03 K/mm3 (0.00-0.23); BASOPHILS PERCENT AUTO 0 % (0-2); EOSINOPHILS ABSOLUTE AUTO 0.14 K/mm3 (0.00-0.68); EOSINOPHILS PERCENT AUTO 2 % (0-6); Hematocrit 34.6 % (33.0-51.0); Hemoglobin 11.2 g/dL (11.5-16.0); IMMATURE GRAN ABSOLUTE AUTO 0.08 K/mm3 (0.00-0.10); IMMATURE GRAN PERCENT AUTO 1 % (0-1); LYMPHOCYTES ABSOLUTE AUTO 0.48 K/mm3 (0.84-5.20); LYMPHOCYTES PERCENT AUTO 5 % (21-46); MONOCYTES ABSOLUTE AUTO 0.47 K/mm3 (0.16-1.47); MONOCYTES PERCENT AUTO 5 % (4-13); Mean Corpuscular HGB 32.3 pg (26.0-34.0); Mean Corpuscular HGB Conc 32.4 g/dL (31.5-36.5); Mean Corpuscular Volume 100 fL (80-100); Mean Platelet Volume 9.5 fL (9.1-12.4); NEUTROPHILS ABSOLUTE AUTO 7.93 K/mm3 (1.96-9.15); NEUTROPHILS PERCENT AUTO 87 % (41-73); Platelet Count 463 K/mm3 (150-400); RDW Standard Deviation 47.4 fL (35.1-46.3); Red Blood Cell Count 3.47 M/mm3 (3.80-5.20); White Blood Cell Count 9.13 K/mm3 (4.00-11.30)
[2020-02-11 04:41] LABS: Bun/Creatinine Ratio 10.1 (12.0-20.0); Calcium, Blood 8.5 mg/dL (8.5-10.1); Creatinine, Blood 1.38 mg/dL (0.40-1.00); Potassium, Blood 3.7 mmol/L (3.5-5.5)
--- NOTE | 2020-02-11 06:41 | NUR ---
CALLED DR. DONALD ABOUT HEART RATE TRENDING 120-130'S W/ NO PRN MEDICATIONS. PATIENT SLEPT FOR ABOUT SIX HOURS. PATIENT HEART RATE 100-110 AFTER PRN PO CARDIZEM. VSS. NO OTHER ACUTE CHANGES TO REPORT.
[2020-02-11] MEDS ORDERED: DILTIAZEM 24HR120 MG PO (12:50)
[2020-02-11] MEDS ORDERED: K-Dur 20 meq T20 MEQ PO (12:51)
[2020-02-11] MEDS ORDERED: AZIT250 PO (12:52)
[2020-02-11] MEDS ORDERED: AMOCLA875 PO (12:52)
[2020-02-11] MEDS ORDERED: FURO20 PO ×2 (12:57→13:03)
[2020-02-11] MEDS ORDERED: Pedi-Dri 100,0060 GM TOP (13:14)
--- NOTE | 2020-02-11 13:58 | NUR ---
SPOKE WITH DAUGHTER ON PHONE REGARDING DISCHARGE INSTRUCTIONS. CONFIRMED [place] TO [facility] O2 THIS AFTERNOON. PORTABLE 02 TANK DELIVERED TO PT YESTERDAY. RX CALLED INTO [facility] PER PT REQUEST, DAUGHTER AWARE.
== END 2020-02-11 15:01 | disposition home or self-care (01) | DRG 193 ==
LOC: ER 19:40 → MEDS 19:41 → ER 20:08 → EDBEDREQSVC 02-02 01:05 → MEDS 02-02 01:27 → PCU 02-02 12:00 → MEDS 02-02 12:00 → ICUE 02-02 12:00 → MEDS 02-02 12:01 → PCU 02-03 21:06 → ICUE 02-07 11:25 → PCU 02-09 17:59
PROVIDERS: Emergency Medicine; Family Medicine; Internal Medicine; Internal Medicine Pulmonary Disease; Nurse Practitioner Acute Care; Pharmacist; ADMIT Internal Medicine
DX: J18.9 Pneumonia, unspecified organism (principal); J96.01 Acute respiratory failure with hypoxia; A41.9 Sepsis, unspecified organism; G92 Toxic encephalopathy; N17.9 Acute kidney failure, unspecified; I48.19 Other persistent atrial fibrillation; F41.9 Anxiety disorder, unspecified; I10 Essential (primary) hypertension; R91.1 Solitary pulmonary nodule; G47.33 Obstructive sleep apnea (adult) (pediatric); R82.71 Bacteriuria; E66.01 Morbid (severe) obesity due to excess calories; E11.649 Type 2 diabetes mellitus with hypoglycemia without coma
CPT/HCPCS: 0099U; 36415; 36600; 51702; 71045; 71260; 80048; 80053; 80202; 81001; 82803; 82947; 83605; 83735; 83880; 84145; 84484; 85025; 87040; 87086; 93005; 93010; 93308; 93321; 94640; 94660; 94761; 94762; 96374; 96375; 97110; 97116; 97162; 97166; 97530; 97535; 99285-25; A9270; A9270-GY; C1751; G0378; J0456; J0696; J1630; J1940; J2060; J2543; J3010; J3370; J7042; J7050; J7799; Q9967; U0002

== ENCOUNTER → 2020-02-01 | Outpatient (CLI) | payer MEDICARE, OTHER ==
[~2020-02-01] MED LIST changes: +BUPROPION XL150 M1 PO
== END | disposition home or self-care (01) ==
LOC: LAB EV 19:23 → LAB SHORT 19:23
DX: J06.9 Acute upper respiratory infection, unspecified (principal)
CPT/HCPCS: U0003

== ENCOUNTER → 2020-03-29 | Outpatient (CLI) | payer MEDICARE, OTHER ==
[~2020-03-29] MED LIST changes: +AMOCLA875 PO; +AZIT250 PO; +BUPROPION XL150 M1 PO; +DILTIAZEM 24HR120 MG PO; +K-Dur 20 meq T20 MEQ PO; +Pedi-Dri 100,0060 GM TOP
[2020-03-29 15:22] LABS: Calcium, Blood 8.8 mg/dL (8.5-10.1); Creatinine, Blood 1.18 mg/dL (0.40-1.00); Potassium, Blood 3.9 mmol/L (3.5-5.5)
== END | disposition home or self-care (01) ==
LOC: LAB SHORT 13:18 → LAB 13:18
PROVIDERS: Family Medicine
DX: R94.4 Abnormal results of kidney function studies (principal)
CPT/HCPCS: 80048

== ENCOUNTER → 2020-06-05 | Outpatient (CLI) | payer MEDICARE, OTHER ==
[2020-06-05 13:03] LABS: BASOPHILS ABSOLUTE AUTO 0.03 K/mm3 (0.00-0.23); BASOPHILS PERCENT AUTO 1 % (0-2); EOSINOPHILS ABSOLUTE AUTO 0.26 K/mm3 (0.00-0.68); EOSINOPHILS PERCENT AUTO 4 % (0-6); Hematocrit 36.8 % (33.0-51.0); Hemoglobin 11.7 g/dL (11.5-16.0); IMMATURE GRAN ABSOLUTE AUTO 0.02 K/mm3 (0.00-0.10); IMMATURE GRAN PERCENT AUTO 0 % (0-1); LYMPHOCYTES ABSOLUTE AUTO 1.55 K/mm3 (0.84-5.20); LYMPHOCYTES PERCENT AUTO 25 % (21-46); MONOCYTES ABSOLUTE AUTO 0.42 K/mm3 (0.16-1.47); MONOCYTES PERCENT AUTO 7 % (4-13); Mean Corpuscular HGB 32.4 pg (26.0-34.0); Mean Corpuscular HGB Conc 31.8 g/dL (31.5-36.5); Mean Corpuscular Volume 102 fL (80-100); Mean Platelet Volume 9.3 fL (9.1-12.4); NEUTROPHILS ABSOLUTE AUTO 3.84 K/mm3 (1.96-9.15); NEUTROPHILS PERCENT AUTO 63 % (41-73); Platelet Count 309 K/mm3 (150-400); RDW Coefficient Variation 12.8 % (11.7-14.2); RDW Standard Deviation 48.1 fL (35.1-46.3); Red Blood Cell Count 3.61 M/mm3 (3.80-5.20); White Blood Cell Count 6.12 K/mm3 (4.00-11.30)
[2020-06-05 13:12] LABS: Albumin, Blood 3.3 g/dL (3.4-5.0); Albumin/Globulin Ratio 0.7 (0.8-1.8); Bilirubin, Total 0.3 mg/dL (0.1-1.0); Bun/Creatinine Ratio 12.9 (12.0-20.0); Creatinine, Blood 1.16 mg/dL (0.40-1.00); Globulin, Blood 4.5 g/dL (2.2-4.0); Potassium, Blood 4.5 mmol/L (3.5-5.5); Total Protein, Blood 7.8 g/dL (6.4-8.2)
== END | disposition home or self-care (01) ==
LOC: LAB EV 12:57 → LAB SHORT 12:57
PROVIDERS: Physician Assistant Medical
DX: R10.11 Right upper quadrant pain (principal)
CPT/HCPCS: 80053; 83690; 85025

== ENCOUNTER 2020-07-10 12:30 | Emergency (ER) | payer MEDICARE, OTHER ==
[~2020-07-10] VITALS: Ht 165.1 cm; Wt 95.2 kg
[2020-07-10 13:17] LABS: Source, Urine Voided
[2020-07-10 13:35] LABS: BASOPHILS ABSOLUTE AUTO 0.04 K/mm3 (0.00-0.23); BASOPHILS PERCENT AUTO 1 % (0-2); EOSINOPHILS ABSOLUTE AUTO 0.39 K/mm3 (0.00-0.68); EOSINOPHILS PERCENT AUTO 6 % (0-6); Hematocrit 37.2 % (33.0-51.0); Hemoglobin 11.6 g/dL (11.5-16.0); IMMATURE GRAN ABSOLUTE AUTO 0.02 K/mm3 (0.00-0.10); IMMATURE GRAN PERCENT AUTO 0 % (0-1); LYMPHOCYTES ABSOLUTE AUTO 2.16 K/mm3 (0.84-5.20); LYMPHOCYTES PERCENT AUTO 30 % (21-46); MONOCYTES PERCENT AUTO 10 % (4-13); Mean Corpuscular HGB 31.6 pg (26.0-34.0); Mean Corpuscular HGB Conc 31.2 g/dL (31.5-36.5); Mean Corpuscular Volume 101 fL (80-100); Mean Platelet Volume 9.5 fL (9.1-12.4); NEUTROPHILS ABSOLUTE AUTO 3.83 K/mm3 (1.96-9.15); NEUTROPHILS PERCENT AUTO 54 % (41-73); Platelet Count 286 K/mm3 (150-400); RDW Coefficient Variation 12.8 % (11.7-14.2); RDW Standard Deviation 47.9 fL (35.1-46.3); Red Blood Cell Count 3.67 M/mm3 (3.80-5.20); White Blood Cell Count 7.14 K/mm3 (4.00-11.30)
[2020-07-10 14:03] LABS: Bilirubin, Urine Neg (Neg); Blood, Urine 2+ (Neg); Glucose Qualitative, Urine Neg (Neg); Ketones, Urine Neg (Neg); Leukocyte Esterase, Urine Neg (Neg); Nitrite, Urine Neg (Neg); Protein, Urine Neg (Neg); Urobilinogen, Urine NORM (Normal)
[2020-07-10 14:14] LABS: Acetaminophen, Random <2.0 ug/mL (10.0-30.0); Alanine Aminotransfer (ALT/SGP 16 U/L (12-78); Albumin, Blood 3.1 g/dL (3.4-5.0); Albumin/Globulin Ratio 0.7 (0.8-1.8); Alk Phos 46 U/L (50-136); Anion Gap 5 mmol/L (6-16); Aspartate Aminotrans (AST/SGOT 13 U/L (12-37); Bilirubin, Total 0.4 mg/dL (0.1-1.0); Blood Urea Nitrogen 16 mg/dL (8-24); Bun/Creatinine Ratio 14.5 (12.0-20.0); CO2, Blood 29 mmol/L (21-32); Calcium, Blood 9.2 mg/dL (8.5-10.1); Chloride, Blood 110 mmol/L (98-108); Ethanol (Alcohol), Blood, Med <3 mg/dL; Globulin, Blood 4.2 g/dL (2.2-4.0); Glomerular Filtration Rate 51 (60-); Glucose, Blood 111 mg/dL (70-99); Potassium, Blood 3.8 mmol/L (3.5-5.5); Salicylate <1.7 mg/dL (2.8-20.0); Sodium, Blood 144 mmol/L (136-145); Total Protein, Blood 7.3 g/dL (6.4-8.2)
[2020-07-10 14:14] LABS: Appearance, Urine Clear (Clear); Color, Urine Pale Yellow (P-Yellow)
[2020-07-10 14:16] LABS: Bacteria Rare /hpf; Squamous Epithelial Cells Few /hpf (Few); White Blood Cells, Urine 0-2 /hpf (0-5)
[2020-07-10 14:17] LABS: U Amphetamine Screen Not Detected; U Barbituate Screen Not Detected; U Benzodiazapine Screen Not Detected; U Buprenorphine Screen Not Detected; U Cannabinoids Screen Not Detected; U Cocaine Screen Not Detected; U Methadone Screen Not Detected; U Methamphetamine Screen Not Detected; U Opiates Screen DETECTED; U Oxycodone Screen Not Detected; U Phencyclidine Screen Not Detected; U Propoxyphene Screen Not Detected
[2020-07-10] MEDS ORDERED: QUET25 PO (14:37)
== END 2020-07-10 16:02 | disposition home or self-care (01) ==
LOC: ER 12:30
PROVIDERS: Emergency Medicine
DX: G47.00 Insomnia, unspecified (principal); R45.1 Restlessness and agitation; F32.9 Major depressive disorder, single episode, unspecified; F41.9 Anxiety disorder, unspecified; I10 Essential (primary) hypertension; E11.9 Type 2 diabetes mellitus without complications; I48.91 Unspecified atrial fibrillation; Z88.1 Allergy status to other antibiotic agents; Z79.899 Other long term (current) drug therapy
CPT/HCPCS: 80053; 81001; 85025; 99284; G0480

== ENCOUNTER 2020-07-30 01:54 | Emergency (ER) | payer MEDICARE, OTHER ==
[~2020-07-30] VITALS: Ht 165.1 cm; Wt 95.2 kg
[~2020-07-30 01:54] MED LIST changes: +QUET25 PO
[2020-07-30 02:24] LABS: BASOPHILS ABSOLUTE AUTO 0.03 K/mm3 (0.00-0.23); BASOPHILS PERCENT AUTO 1 % (0-2); EOSINOPHILS ABSOLUTE AUTO 0.14 K/mm3 (0.00-0.68); EOSINOPHILS PERCENT AUTO 2 % (0-6); Hematocrit 36.2 % (33.0-51.0); Hemoglobin 11.7 g/dL (11.5-16.0); IMMATURE GRAN ABSOLUTE AUTO 0.02 K/mm3 (0.00-0.10); IMMATURE GRAN PERCENT AUTO 0 % (0-1); LYMPHOCYTES ABSOLUTE AUTO 1.37 K/mm3 (0.84-5.20); LYMPHOCYTES PERCENT AUTO 21 % (21-46); MONOCYTES ABSOLUTE AUTO 0.46 K/mm3 (0.16-1.47); MONOCYTES PERCENT AUTO 7 % (4-13); Mean Corpuscular HGB 31.7 pg (26.0-34.0); Mean Corpuscular HGB Conc 32.3 g/dL (31.5-36.5); Mean Corpuscular Volume 98 fL (80-100); Mean Platelet Volume 9.6 fL (9.1-12.4); NEUTROPHILS ABSOLUTE AUTO 4.51 K/mm3 (1.96-9.15); NEUTROPHILS PERCENT AUTO 69 % (41-73); Platelet Count 293 K/mm3 (150-400); RDW Coefficient Variation 13.2 % (11.7-14.2); Red Blood Cell Count 3.69 M/mm3 (3.80-5.20); White Blood Cell Count 6.53 K/mm3 (4.00-11.30)
[2020-07-30 02:40] LABS: Albumin, Blood 3.1 g/dL (3.4-5.0); Albumin/Globulin Ratio 0.7 (0.8-1.8); Bilirubin, Total 0.3 mg/dL (0.1-1.0); Bun/Creatinine Ratio 16.8 (12.0-20.0); Calcium, Blood 8.7 mg/dL (8.5-10.1); Creatinine, Blood 1.07 mg/dL (0.40-1.00); Globulin, Blood 4.2 g/dL (2.2-4.0); Total Protein, Blood 7.3 g/dL (6.4-8.2)
[2020-07-30 02:51] LABS: Source, Urine Catheter
[2020-07-30 02:54] LABS: Bilirubin, Urine Neg (Neg); Blood, Urine 5+ (Neg); Glucose Qualitative, Urine Neg (Neg); Ketones, Urine Neg (Neg); Leukocyte Esterase, Urine Neg (Neg); Nitrite, Urine Neg (Neg); Protein, Urine Neg (Neg); Urobilinogen, Urine NORM (Normal)
[2020-07-30 03:03] LABS: Appearance, Urine Clear (Clear); Color, Urine Yellow (P-Yellow)
[2020-07-30 03:04] LABS: Bacteria Rare /hpf; Squamous Epithelial Cells Few /hpf (Few); White Blood Cells, Urine Not Seen /hpf (0-5)
[2020-07-30 03:05] LABS: Amorphous Light (0-Heavy)
== END 2020-07-30 04:30 | disposition home or self-care (01) ==
LOC: ER 01:54
PROVIDERS: Emergency Medicine
DX: F03.90 Unspecified dementia, unspecified severity, without behavioral disturbance, psychotic disturbance, mood disturbance, and anxiety (principal); R45.1 Restlessness and agitation; F32.9 Major depressive disorder, single episode, unspecified; F41.9 Anxiety disorder, unspecified; I10 Essential (primary) hypertension; E11.9 Type 2 diabetes mellitus without complications; I48.91 Unspecified atrial fibrillation; Z79.899 Other long term (current) drug therapy; Z79.84 Long term (current) use of oral hypoglycemic drugs
CPT/HCPCS: 36415; 74176; 80053; 81001; 83605; 85025; 96361; 96374; 99285-25; J3010; J7030; P9612

== ENCOUNTER → 2020-12-11 | Outpatient (CLI) | payer MEDICARE, OTHER ==
[2020-12-12 11:08] LABS: Candida species (DNA Probe) Negative (NEGATIVE); G. vaginalis (DNA Probe) Positive (NEGATIVE); T. vaginalis (DNA Probe) Negative (NEGATIVE)
[2020-12-14 17:09] LABS: HPV 16 Negative (Negative); HPV 18 Negative (Negative); HPV OTHER HR TYPES Negative (Negative)
== END | disposition home or self-care (01) ==
LOC: LAB SHORT 12:30 → LAB 12:30
PROVIDERS: Obstetrics & Gynecology
DX: Z01.419 Encounter for gynecological examination (general) (routine) without abnormal findings (principal); N76.0 Acute vaginitis
CPT/HCPCS: 87070; 87205; 87480; 87510; 87624; 87660; G0123

== ENCOUNTER → 2021-10-30 | Outpatient (CLI) | payer MEDICARE, OTHER ==
[2021-10-31 09:57] LABS: Candida species (DNA Probe) Negative (NEGATIVE); G. vaginalis (DNA Probe) Negative (NEGATIVE); T. vaginalis (DNA Probe) Negative (NEGATIVE)
== END | disposition home or self-care (01) ==
LOC: LAB SHORT 19:35
PROVIDERS: Family Medicine
DX: N76.0 Acute vaginitis (principal)
CPT/HCPCS: 87480; 87510; 87660

== ENCOUNTER 2022-04-10 06:28 | Emergency (ER) | payer MEDICARE, OTHER ==
[~2022-04-10] VITALS: Ht 167.6 cm; Wt 68.0 kg
[2022-04-10] MEDS ORDERED: GABA300 PO (07:17)
[2022-04-10] MEDS ORDERED: Norco 5-325 Ta1 EACH PO (07:18)
[2022-04-10] MEDS ORDERED: METO25ER PO (07:18)
[2022-04-10] MEDS ORDERED: OLAN10 PO (07:19)
[2022-04-10] MEDS ORDERED: POTA10T (07:20)
[2022-04-10] MEDS ORDERED: TORSE20 (07:21)
[2022-04-10 07:48] LABS: BASOPHILS ABSOLUTE AUTO 0.01 K/mm3 (0.00-0.23); BASOPHILS PERCENT AUTO 0 % (0-2); EOSINOPHILS PERCENT AUTO 0 % (0-6); Hematocrit 41.2 % (33.0-51.0); Hemoglobin 14.2 g/dL (11.5-16.0); IMMATURE GRAN ABSOLUTE AUTO 0.02 K/mm3 (0.00-0.10); IMMATURE GRAN PERCENT AUTO 1 % (0-1); LYMPHOCYTES ABSOLUTE AUTO 0.71 K/mm3 (0.84-5.20); LYMPHOCYTES PERCENT AUTO 17 % (21-46); MONOCYTES ABSOLUTE AUTO 0.61 K/mm3 (0.16-1.47); MONOCYTES PERCENT AUTO 15 % (4-13); Mean Corpuscular HGB 34.1 pg (26.0-34.0); Mean Corpuscular HGB Conc 34.5 g/dL (31.5-36.5); Mean Corpuscular Volume 99 fL (80-100); Mean Platelet Volume 9.6 fL (9.1-12.4); NEUTROPHILS ABSOLUTE AUTO 2.72 K/mm3 (1.96-9.15); NEUTROPHILS PERCENT AUTO 67 % (41-73); Platelet Count 199 K/mm3 (150-400); RDW Coefficient Variation 12.6 % (11.7-14.2); RDW Standard Deviation 46.2 fL (35.1-46.3); Red Blood Cell Count 4.17 M/mm3 (3.80-5.20); White Blood Cell Count 4.07 K/mm3 (4.00-11.30)
[2022-04-10 08:05] LABS: Albumin, Blood 3.3 g/dL (3.4-5.0); Albumin/Globulin Ratio 0.8 (0.8-1.8); Bilirubin, Total 0.3 mg/dL (0.1-1.0); Bun/Creatinine Ratio 14.8 (12.0-20.0); Calcium, Blood 8.9 mg/dL (8.5-10.1); Creatinine, Blood 1.22 mg/dL (0.40-1.00); Potassium, Blood 3.9 mmol/L (3.5-5.5); Total Protein, Blood 7.3 g/dL (6.4-8.2)
[2022-04-10 09:10] LABS: Source, Urine Foley catheter
[2022-04-10 09:15] LABS: Appearance, Urine Clear (Clear); Bilirubin, Urine Neg (Neg); Blood, Urine 3+ (Neg); Color, Urine Yellow (P-Yellow); Glucose Qualitative, Urine Neg (Neg); Ketones, Urine 1+ (Neg); Leukocyte Esterase, Urine 1+ (Neg); Nitrite, Urine Neg (Neg); Protein, Urine 1+ (Neg); Urobilinogen, Urine NORM (Normal)
[2022-04-10 09:22] LABS: Bacteria Few /hpf; Squamous Epithelial Cells Few /hpf (Few)
[2022-04-10] MEDS ORDERED: DILT120 PO (10:00)
[2022-04-10 10:26] LABS: Influenza A, PCR Negative (NEGATIVE); Influenza B, PCR Negative (NEGATIVE); Resp Syncytial Virus, PCR Negative (NEGATIVE); SARS-Cov-2 (COVID-19) PCR, MMC Positive (NEGATIVE)
== END 2022-04-10 11:45 | disposition home or self-care (01) ==
LOC: ER 06:28
PROVIDERS: Emergency Medicine
DX: U07.1 COVID-19 (principal); E86.0 Dehydration; I10 Essential (primary) hypertension; E11.9 Type 2 diabetes mellitus without complications; F03.90 Unspecified dementia, unspecified severity, without behavioral disturbance, psychotic disturbance, mood disturbance, and anxiety; Z88.1 Allergy status to other antibiotic agents; Z79.899 Other long term (current) drug therapy; Z79.84 Long term (current) use of oral hypoglycemic drugs
CPT/HCPCS: 0241U; 71045; 80053; 81001; 85025; J7030

== ENCOUNTER → 2022-07-04 | Outpatient (CLI) | payer MEDICARE, OTHER ==
[~2022-07-04] MED LIST changes: +DILT120 PO; +GABA300 PO; +METO25ER PO; +Norco 5-325 Ta1 EACH PO; +OLAN10 PO; +POTA10T; +TORSE20
[2022-07-04 14:08] LABS: BASOPHILS ABSOLUTE AUTO 0.05 K/mm3 (0.00-0.23); BASOPHILS PERCENT AUTO 1 % (0-2); EOSINOPHILS ABSOLUTE AUTO 0.31 K/mm3 (0.00-0.68); EOSINOPHILS PERCENT AUTO 5 % (0-6); Hematocrit 40.1 % (33.0-51.0); Hemoglobin 13.3 g/dL (11.5-16.0); IMMATURE GRAN ABSOLUTE AUTO 0.03 K/mm3 (0.00-0.10); IMMATURE GRAN PERCENT AUTO 1 % (0-1); LYMPHOCYTES ABSOLUTE AUTO 1.98 K/mm3 (0.84-5.20); LYMPHOCYTES PERCENT AUTO 35 % (21-46); MONOCYTES ABSOLUTE AUTO 0.58 K/mm3 (0.16-1.47); MONOCYTES PERCENT AUTO 10 % (4-13); Mean Corpuscular HGB Conc 33.2 g/dL (31.5-36.5); Mean Corpuscular Volume 103 fL (80-100); Mean Platelet Volume 9.5 fL (9.1-12.4); NEUTROPHILS ABSOLUTE AUTO 2.78 K/mm3 (1.96-9.15); NEUTROPHILS PERCENT AUTO 49 % (41-73); Platelet Count 317 K/mm3 (150-400); RDW Coefficient Variation 13.4 % (11.7-14.2); RDW Standard Deviation 50.1 fL (35.1-46.3); Red Blood Cell Count 3.91 M/mm3 (3.80-5.20); White Blood Cell Count 5.73 K/mm3 (4.00-11.30)
[2022-07-04 14:48] LABS: Albumin/Globulin Ratio 0.8 (0.8-1.8); Bilirubin, Total 0.5 mg/dL (0.1-1.0); Bun/Creatinine Ratio 19.6 (12.0-20.0); Calcium, Blood 8.8 mg/dL (8.5-10.1); Creatinine, Blood 1.02 mg/dL (0.40-1.00); Globulin, Blood 3.9 g/dL (2.2-4.0); Potassium, Blood 4.1 mmol/L (3.5-5.5); Total Protein, Blood 6.9 g/dL (6.4-8.2)
== END ==
LOC: LAB SHORT 13:42
PROVIDERS: Physician Assistant
DX: R42 Dizziness and giddiness (principal); R82.998 Other abnormal findings in urine
CPT/HCPCS: 80053; 85025; 87086

== ENCOUNTER → 2023-02-01 | Outpatient (CLI) | payer MEDICARE, OTHER ==
[2023-02-01 14:40] LABS: BASOPHILS ABSOLUTE AUTO 0.02 K/mm3 (0.00-0.23); BASOPHILS PERCENT AUTO 0 % (0-2); EOSINOPHILS ABSOLUTE AUTO 0.03 K/mm3 (0.00-0.68); EOSINOPHILS PERCENT AUTO 1 % (0-6); Hematocrit 40.3 % (33.0-51.0); IMMATURE GRAN ABSOLUTE AUTO 0.02 K/mm3 (0.00-0.10); IMMATURE GRAN PERCENT AUTO 0 % (0-1); LYMPHOCYTES ABSOLUTE AUTO 1.75 K/mm3 (0.84-5.20); LYMPHOCYTES PERCENT AUTO 28 % (21-46); MONOCYTES ABSOLUTE AUTO 0.43 K/mm3 (0.16-1.47); MONOCYTES PERCENT AUTO 7 % (4-13); Mean Corpuscular HGB Conc 34.7 g/dL (31.5-36.5); Mean Corpuscular Volume 98 fL (80-100); Mean Platelet Volume 10.4 fL (9.1-12.4); NEUTROPHILS PERCENT AUTO 64 % (41-73); Platelet Count 269 K/mm3 (150-400); RDW Coefficient Variation 12.8 % (11.7-14.2); RDW Standard Deviation 45.7 fL (35.1-46.3); Red Blood Cell Count 4.12 M/mm3 (3.80-5.20); White Blood Cell Count 6.25 K/mm3 (4.00-11.30)
[2023-02-01 14:48] LABS: Albumin, Blood 3.5 g/dL (3.4-5.0); Albumin/Globulin Ratio 0.9 (0.8-1.8); Calcium, Blood 9.5 mg/dL (8.5-10.1); Creatinine, Blood 1.07 mg/dL (0.40-1.00); Globulin, Blood 3.8 g/dL (2.2-4.0); Potassium, Blood 4.1 mmol/L (3.5-5.5); Total Protein, Blood 7.3 g/dL (6.4-8.2)
[2023-02-01 14:56] LABS: Magnesium, Blood 1.6 mg/dL (1.6-2.4)
== END ==
LOC: LAB SHORT 14:28
PROVIDERS: Physician Assistant
DX: R10.9 Unspecified abdominal pain (principal); Z79.899 Other long term (current) drug therapy
CPT/HCPCS: 80053; 82150; 82607; 83690; 83735; 85025

== ENCOUNTER → 2024-10-10 | Outpatient (CLI) | payer MEDICARE, OTHER | END | disposition home or self-care (01) | LOC: LAB SHORT 17:55 → LAB 17:55 | DX: R82.90 Unspecified abnormal findings in urine (principal) | CPT/HCPCS: 87086 ==

== ENCOUNTER → 2024-12-07 | Outpatient (CLI) | payer MEDICARE, OTHER ==
[2024-12-07 10:13] LABS: BASOPHILS ABSOLUTE AUTO 0.01 K/mm3 (0.00-0.23); BASOPHILS PERCENT AUTO 0 % (0-2); EOSINOPHILS ABSOLUTE AUTO 0.02 K/mm3 (0.00-0.68); EOSINOPHILS PERCENT AUTO 1 % (0-6); Hemoglobin 11.8 g/dL (11.5-16.0); IMMATURE GRAN ABSOLUTE AUTO 0.01 K/mm3 (0.00-0.10); IMMATURE GRAN PERCENT AUTO 0 % (0-1); LYMPHOCYTES ABSOLUTE AUTO 0.55 K/mm3 (0.84-5.20); LYMPHOCYTES PERCENT AUTO 18 % (21-46); MONOCYTES ABSOLUTE AUTO 0.32 K/mm3 (0.16-1.47); MONOCYTES PERCENT AUTO 10 % (4-13); Mean Corpuscular HGB 32.4 pg (26.0-34.0); Mean Corpuscular HGB Conc 32.8 g/dL (31.5-36.5); Mean Corpuscular Volume 99 fL (80-100); Mean Platelet Volume 9.4 fL (9.1-12.4); NEUTROPHILS ABSOLUTE AUTO 2.18 K/mm3 (1.96-9.15); NEUTROPHILS PERCENT AUTO 71 % (41-73); Platelet Count 239 K/mm3 (150-400); RDW Coefficient Variation 12.9 % (11.7-14.2); RDW Standard Deviation 46.5 fL (35.1-46.3); Red Blood Cell Count 3.64 M/mm3 (3.80-5.20); White Blood Cell Count 3.09 K/mm3 (4.00-11.30)
[2024-12-07 10:37] LABS: Albumin/Globulin Ratio 0.7 (0.8-1.8); Bilirubin, Total 0.5 mg/dL (0.1-1.0); Bun/Creatinine Ratio 21.6 (12.0-20.0); Calcium, Blood 8.8 mg/dL (8.5-10.1); Creatinine, Blood 1.16 mg/dL (0.40-1.00); Globulin, Blood 4.2 g/dL (2.2-4.0); Potassium, Blood 3.5 mmol/L (3.5-5.5); Thyroid Stimulating Hormone 4.127 uIU/mL (0.360-4.800); Total Protein, Blood 7.2 g/dL (6.4-8.2)
== END ==
LOC: LAB SHORT 10:07 → LAB 10:07
PROVIDERS: Physician Assistant
DX: R53.83 Other fatigue (principal)
CPT/HCPCS: 80053; 83690; 84443; 85025

== ENCOUNTER → 2025-03-13 | Outpatient (CLI) | payer MEDICARE, OTHER ==
[2025-03-13 15:37] LABS: BASOPHILS ABSOLUTE AUTO 0.01 K/mm3 (0.00-0.23); BASOPHILS PERCENT AUTO 0 % (0-2); EOSINOPHILS ABSOLUTE AUTO 0.19 K/mm3 (0.00-0.68); EOSINOPHILS PERCENT AUTO 5 % (0-6); IMMATURE GRAN ABSOLUTE AUTO 0.02 K/mm3 (0.00-0.10); IMMATURE GRAN PERCENT AUTO 1 % (0-1); LYMPHOCYTES ABSOLUTE AUTO 0.92 K/mm3 (0.84-5.20); LYMPHOCYTES PERCENT AUTO 23 % (21-46); MONOCYTES ABSOLUTE AUTO 0.38 K/mm3 (0.16-1.47); MONOCYTES PERCENT AUTO 9 % (4-13); Mean Corpuscular HGB 28.3 pg (26.0-34.0); Mean Corpuscular HGB Conc 29.5 g/dL (31.5-36.5); Mean Corpuscular Volume 96 fL (80-100); Mean Platelet Volume 9.8 fL (9.1-12.4); NEUTROPHILS ABSOLUTE AUTO 2.54 K/mm3 (1.96-9.15); NEUTROPHILS PERCENT AUTO 63 % (41-73); Platelet Count 345 K/mm3 (150-400); RDW Coefficient Variation 16.3 % (11.7-14.2); Red Blood Cell Count 1.98 M/mm3 (3.80-5.20); White Blood Cell Count 4.06 K/mm3 (4.00-11.30)
[2025-03-13 15:40] LABS: Hemoglobin 5.6 g/dL (11.5-16.0)
[2025-03-13 15:56] LABS: Albumin, Blood 2.7 g/dL (3.4-5.0); Albumin/Globulin Ratio 0.7 (0.8-1.8); Bilirubin, Total 0.2 mg/dL (0.1-1.0); Bun/Creatinine Ratio 12.6 (12.0-20.0); Calcium, Blood 8.7 mg/dL (8.5-10.1); Creatinine, Blood 1.19 mg/dL (0.40-1.00); Globulin, Blood 3.9 g/dL (2.2-4.0); Potassium, Blood 3.8 mmol/L (3.5-5.5); Total Protein, Blood 6.6 g/dL (6.4-8.2)
== END ==
LOC: LAB SHORT 15:33 → LAB 15:33
PROVIDERS: Family Medicine
DX: E86.0 Dehydration (principal)
CPT/HCPCS: 80053; 83690; 85025

== ENCOUNTER 2025-04-10 12:26 | Observation (INO) | payer MEDICARE, OTHER ==
[~2025-04-10] VITALS: Ht 154.9 cm; Wt 79.5 kg
[2025-04-10] VITALS (10 sets, daily range): BP systolic 114–158; BP diastolic 61–89
[2025-04-10] MEDS ORDERED: NS 250 ML IV PRN (13:15)
[2025-04-10 14:01] LABS: BASOPHILS ABSOLUTE AUTO 0.03 K/mm3 (0.00-0.23); BASOPHILS PERCENT AUTO 1 % (0-2); EOSINOPHILS ABSOLUTE AUTO 0.19 K/mm3 (0.00-0.68); EOSINOPHILS PERCENT AUTO 4 % (0-6); Hematocrit 20.4 % (33.0-51.0); Hemoglobin 6.0 g/dL (11.5-16.0); IMMATURE GRAN ABSOLUTE AUTO 0.01 K/mm3 (0.00-0.10); IMMATURE GRAN PERCENT AUTO 0 % (0-1); LYMPHOCYTES ABSOLUTE AUTO 0.95 K/mm3 (0.84-5.20); LYMPHOCYTES PERCENT AUTO 20 % (21-46); MONOCYTES ABSOLUTE AUTO 0.62 K/mm3 (0.16-1.47); MONOCYTES PERCENT AUTO 13 % (4-13); Mean Corpuscular HGB Conc 29.4 g/dL (31.5-36.5); Mean Corpuscular Volume 102 fL (80-100); NEUTROPHILS ABSOLUTE AUTO 2.90 K/mm3 (1.96-9.15); NEUTROPHILS PERCENT AUTO 62 % (41-73); NRBC ABSOLUTE 0.00 K/mm3 (0.00-0.02); NRBC Auto 0.0 /100 WBC (0.0-0.2); Platelet Count 262 K/mm3 (150-400); RDW Coefficient Variation 18.7 % (11.7-14.2); RDW Standard Deviation 71.1 fL (35.1-46.3)
[2025-04-10 14:30] LABS: Alanine Aminotransfer (ALT/SGP 14.0 U/L (12-78); Albumin, Blood 2.6 g/dL (3.4-5.0); Albumin/Globulin Ratio 0.8 (0.8-1.8); Anion Gap 6.0 mmol/L (3-11); Aspartate Aminotrans (AST/SGOT 17.0 U/L (12-37); Bilirubin, Total 0.2 mg/dL (0.1-1.0); Blood Urea Nitrogen 18.0 mg/dL (8-24); CO2, Blood 25.0 mmol/L (21-32); Calcium, Blood 8.5 mg/dL (8.5-10.1); Chloride, Blood 112.0 mmol/L (98-108); Creatinine, Blood 0.95 mg/dL (0.40-1.00); Globulin, Blood 3.4 g/dL (2.2-4.0); Glucose, Blood 108.0 mg/dL (70-99); Potassium, Blood 4.3 mmol/L (3.5-5.5); Sodium, Blood 139.0 mmol/L (136-145); Total Protein, Blood 6.0 g/dL (6.4-8.2)
--- NOTE | 2025-04-10 19:53 | NUR ---
SHIFT SUMMARY HAS DONE WELL BUT UNFORTUNATLY DUE TO TIME BLOOD READY SLIPS ARRIVED ONLY RECIEVED ON MY SHIFT BUT REMAINING UNIT WILL BE GIVEN THIS EVENING.
--- NOTE | 2025-04-10 23:58 | NUR ---
ASSUMPTION OF CARE RECEIVED REPORT FROM ZAYNAB RN. PT A&0 x4. VSS. 1 UNIT PRBCs RECENTLY FINISHED INFUSING. PT RESTING IN CHAIR, WATCHING TV. NO NEEDS STATED. CALL LIGHT IN REACH.
[2025-04-11 02:26] VITALS: BP 150/83
--- NOTE | 2025-04-11 03:49 | NUR ---
Patient pulled CPAP off stating they would rather not sleep than use it. A nasal cannula was placed instead at 2 liters of oxygen. Primary nurse notified.
--- NOTE | 2025-04-11 05:59 | NUR ---
SHIFT SUMMARY S/P ANEMIA. A&O x4, PT c ONE ANX EPISODE, PT CALMED c THERAPUTIC COMMUNICATION & MEDICATION PER EMAR. VSS, O2 SATS >90% ON 3L O2 VIA NC WHILE ASLEEP. TOLERATING PO INTAKE. VOIDING. AMBULATES USING FWW c GB & SBA. CALL LIGHT IN REACH, BED IN LOWEST POSITION, WILL REPORT TO DAY RN.
[2025-04-11 06:43] LABS: BASOPHILS ABSOLUTE AUTO 0.03 K/mm3 (0.00-0.23); BASOPHILS PERCENT AUTO 1 % (0-2); EOSINOPHILS ABSOLUTE AUTO 0.19 K/mm3 (0.00-0.68); EOSINOPHILS PERCENT AUTO 3 % (0-6); Hematocrit 25.2 % (33.0-51.0); Hemoglobin 8.0 g/dL (11.5-16.0); IMMATURE GRAN ABSOLUTE AUTO 0.02 K/mm3 (0.00-0.10); IMMATURE GRAN PERCENT AUTO 0 % (0-1); LYMPHOCYTES ABSOLUTE AUTO 1.06 K/mm3 (0.84-5.20); LYMPHOCYTES PERCENT AUTO 16 % (21-46); MONOCYTES ABSOLUTE AUTO 0.62 K/mm3 (0.16-1.47); MONOCYTES PERCENT AUTO 10 % (4-13); Mean Corpuscular HGB Conc 31.7 g/dL (31.5-36.5); NEUTROPHILS ABSOLUTE AUTO 4.61 K/mm3 (1.96-9.15); NEUTROPHILS PERCENT AUTO 71 % (41-73); NRBC ABSOLUTE 0.00 K/mm3 (0.00-0.02); NRBC Auto 0.0 /100 WBC (0.0-0.2); Platelet Count 261 K/mm3 (150-400); RDW Coefficient Variation 18.7 % (11.7-14.2); RDW Standard Deviation 62.4 fL (35.1-46.3)
[2025-04-11 06:47] LABS: Mean Corpuscular Volume 94 fL (80-100)
[2025-04-11 07:01] VITALS: BP 150/81
[2025-04-11 07:09] LABS: Alanine Aminotransfer (ALT/SGP 14.0 U/L (12-78); Albumin, Blood 2.7 g/dL (3.4-5.0); Albumin/Globulin Ratio 0.8 (0.8-1.8); Anion Gap 6.0 mmol/L (3-11); Aspartate Aminotrans (AST/SGOT 18.0 U/L (12-37); Bilirubin, Total 0.9 mg/dL (0.1-1.0); Blood Urea Nitrogen 19.0 mg/dL (8-24); CO2, Blood 25.0 mmol/L (21-32); Calcium, Blood 8.1 mg/dL (8.5-10.1); Chloride, Blood 111.0 mmol/L (98-108); Creatinine, Blood 0.99 mg/dL (0.40-1.00); Globulin, Blood 3.5 g/dL (2.2-4.0); Glucose, Blood 97.0 mg/dL (70-99); Potassium, Blood 4.2 mmol/L (3.5-5.5); Sodium, Blood 138.0 mmol/L (136-145); Total Protein, Blood 6.2 g/dL (6.4-8.2)
[2025-04-11] MEDS ORDERED: Enoxaparin 40 MG/0.4 ML SYR SC SCH (09:00)
--- NOTE | 2025-04-11 09:33 | NUR ---
DISCHARGE PT HAPPY & UPBEAT. DAUGHTER VOICES ANNOYANCE THE PT HAD TO STAY OVERNIGHT. ENCOURAGED TO F/U w/ PCP & ONCONOLOGY. ESCORTED OUT VIA WC.
== END 2025-04-11 09:50 | disposition home or self-care (01) ==
LOC: SURS 12:26
PROVIDERS: ADMIT Internal Medicine
DX: D64.9 Anemia, unspecified (principal); C25.0 Malignant neoplasm of head of pancreas; G47.33 Obstructive sleep apnea (adult) (pediatric); E66.01 Morbid (severe) obesity due to excess calories; E11.22 Type 2 diabetes mellitus with diabetic chronic kidney disease; E11.59 Type 2 diabetes mellitus with other circulatory complications; N18.31 Chronic kidney disease, stage 3a; M51.369 Other intervertebral disc degeneration, lumbar region without mention of lumbar back pain or lower extremity pain; F03.90 Unspecified dementia, unspecified severity, without behavioral disturbance, psychotic disturbance, mood disturbance, and anxiety; I50.32 Chronic diastolic (congestive) heart failure; I48.20 Chronic atrial fibrillation, unspecified; I35.0 Nonrheumatic aortic (valve) stenosis; F33.9 Major depressive disorder, recurrent, unspecified; Z88.8 Allergy status to other drugs, medicaments and biological substances; Z91.040 Latex allergy status; Z79.899 Other long term (current) drug therapy; Z79.01 Long term (current) use of anticoagulants; Z66 Do not resuscitate
CPT/HCPCS: 36415; 36430; 80053; 85025; 86850; 86900; 86901; 86923; 94660; 94762; A9270; G0378; J7050; P9016